=== PATIENT | female | born 1950 | race Caucasian/White ===

== ENCOUNTER 2020-12-30 08:00 | Outpatient (CLI) | payer MEDICARE, OTHER | END 2020-12-30 23:59 | disposition home or self-care (01) | LOC: LAB.S 08:00 | PROVIDERS: ATTEND Physician Assistant Medical | DX: R30.0 Dysuria (principal) | CPT/HCPCS: 87086; 87181 ==

== ENCOUNTER 2021-01-16 07:00 | Outpatient (CLI) | payer MEDICARE, OTHER ==
[2021-01-16 19:19] LABS: BILIRUBIN,URINE NEGATIVE (NEGATIVE); GLUCOSE, URINE (UA) NEGATIVE (NEGATIVE); KETONES,URINE (UA) NEGATIVE (NEGATIVE); LEUKOCYTE ESTERASE, URINE MODERATE (NEGATIVE); NITRITE,URINE NEGATIVE (NEGATIVE); OCCULT BLOOD,URINE NEGATIVE (NEGATIVE); PH,URINE 5.5 PH (5.0-7.5); PROTEIN,URINE NEGATIVE (NEGATIVE); UROBILINOGEN,URINE 0.2 (NORMAL) E.U./dL (NORMAL)
[2021-01-16 19:33] LABS: BACTERIA,URINE Few /HPF (None Seen); CLARITY,URINE HAZY (CLEAR); RBC,URINE 0-5 /HPF (0-5); SQUAMOUS EPITHELIAL CELL,UR NONE SEEN (<= Few)
== END 2021-01-16 23:59 | disposition home or self-care (01) ==
LOC: LAB.R 07:00
PROVIDERS: ATTEND Emergency Medicine
DX: N39.0 Urinary tract infection, site not specified (principal)
CPT/HCPCS: 81001; 87086; 87181

== ENCOUNTER 2021-01-27 08:00 | Outpatient (CLI) | payer MEDICARE, OTHER ==
[2021-01-27 15:40] LABS: BILIRUBIN,URINE NEGATIVE (NEGATIVE); GLUCOSE, URINE (UA) NEGATIVE (NEGATIVE); KETONES,URINE (UA) NEGATIVE (NEGATIVE); LEUKOCYTE ESTERASE, URINE SMALL (NEGATIVE); NITRITE,URINE NEGATIVE (NEGATIVE); OCCULT BLOOD,URINE TRACE-INTA (NEGATIVE); PROTEIN,URINE NEGATIVE (NEGATIVE); UROBILINOGEN,URINE 0.2 (NORMAL) E.U./dL (NORMAL)
[2021-01-27 15:42] LABS: CLARITY,URINE CLEAR (CLEAR)
[2021-01-27 15:43] LABS: BACTERIA,URINE Rare /HPF (None Seen); RBC,URINE 0-5 /HPF (0-5); SQUAMOUS EPITHELIAL CELL,UR FEW Squamous (<= Few)
--- OUTSIDE RECORDS SUMMARY | 2021-02-02 02:08 | EXTERNAL MEDICAL SUMMARY RPT | Continuity of Care Document ---
:1950 Demographics Phone Unavailable Preferred Language Unknown Marital Status Unknown Mandaeism Affiliation Unknown Race Unknown Ethnic Group Unknown Author Organization [facility] Address [address] [id number] Phone Care Team Providers Name Role Phone Registrar Unavailable Unavailable Registrar Unavailable Unavailable PA-C Unavailable Unavailable PA-C Unavailable Unavailable MD Unavailable Unavailable Problems date description facility 20201230 Unspecified hypothyroidism [facility] [place] 20201230 Essential (primary) hypertension [facility] [place] 20201230 Never smoker [facility] [place] 20201230 Acute urinary tract infection [facility] [place] 20201230 Dysthymic disorder [facility] [place] 20201230 Ejection murmur [facility] [place] 20201230 Other specified anxiety disorders [facility] [place] 20201230 Benign essential hypertension [facility] [place] 20201230 Cardiac murmur, unspecified [facility] [place] 20201230 Dysuria [facility] [place] 20201230 Exercise [facility] [place] 20201230 Hypothyroidism [facility] [place] 20201230 Mixed anxiety and depressive disorder [facility] [place] 20201230 Alcohol use [facility] [place] 20201230 Hypothyroidism, unspecified [facility] [place] 20201230 Tobacco smoking status NHIS [facility] [place] 20201230 Undiagnosed cardiac murmurs [facility] in [facility] [place] 20201230 Urinary tract infection, site not [facility] specified [facility] [place] 20201230 Urine C&S [facility] [place] 20210116 Alcohol use [facility] [place] [id number] Never smoker [facility] [place] [id number] Tobacco smoking status NHIS Walk-In [facility] [place] [id number] Exercise [facility] [place] [id number] Total score? [facility] [place] [id number] Urinalysis with Microscopic Exam, Walk -In [facility] in Indicated [facility] [place] Medications date description facility [id number] NITROFURANTOIN MONOHYD MACRO Walk-In [facility] [place] [id number] NITROFURANTOIN MONOHYD MACRO Walk-In [facility] [place] [id number] NITROFURANTOIN MONOHYD MACRO Walk-In [facility] [place] [id number] NITROFURANTOIN MONOHYD MACRO Walk-In [facility] [place] [id number] NITROFURANTOIN MONOHYD MACRO Walk-In [facility] [place] [id number] NITROFURANTOIN MONOHYD MACRO Walk-In [facility] [place] [id number] NITROFURANTOIN MONOHYD MACRO Walk-In [facility] [place] [id number] NITROFURANTOIN MONOHYD MACRO Walk-In [facility] [place] [id number] NITROFURANTOIN MONOHYD MACRO Walk-In [facility] [place] [id number] NITROFURANTOIN MONOHYD MACRO Walk-In [facility] [place] [id number] CEPHALEXIN Walk-In [facility] [place] [id number] CEPHALEXIN [facility] [place] [id number] CEPHALEXIN [facility] [place] [id number] CEPHALEXIN [facility] [place] Procedures date description facility [id number] POC URINALYSIS DIP Walk[facility] [place] date description facility [id number] POC URINALYSIS DIP [facility] [place] date description facility 20201230 POC URINALYSIS DIP [facility] [place] date description facility [id number] POC URINALYSIS DIP [facility] [place] date description facility [id number] POC URINALYSIS DIP Walk-In Clinic [facility] [place] date description facility [id number] POC URINALYSIS DIP Walk-In Clinic [facility] [place] date description facility [id number] POC URINALYSIS DIP Walk-In Clinic [facility] [place] date description facility [id number] POC URINALYSIS DIP Walk-In Clinic [facility] [place] Results test status date ordered by attending specimen sonali e DIPSTICK_URINE_STRIP_L unknown [id number] unknown unknown unknown OT_NUMBER protein_urine_semiquan unknown 70064925 unknown unknown unknown titative_dipstick_ glucose_urine_semiquan unknown 16715216 unknown unknown unknown titative Erythrocytes_area_in_U unknown 78938267 unknown unknown unknown rine_sediment_by_Micros copy_high_power_field RBC_urine_dipstick unknown 58805589 unknown unknown unkn own Albumin_Presence_in_Ur unknown 70974218 unknown unknown unknown ine urine_color unknown 31007314 unknown unknown unknown bilirubin_urine unknown 92140579 unknown unknown unknown ketones_urine_by_test_ unknown 43660859 unknown unknown unknown strip nitrite_urine_semiquan unknown 37094930 unknown unknown unknown titative pH_urine_semiquantitat unknown 60651908 unknown unknown unknown raheem specific_gravity_urine unknown 81384333 unknown unknown unknown urobilinogen_urine_sem unknown 92830054 unknown unknown unknown iquantitative_dipstick_ leukocyte_esterase_uri unknown 09356858 unknown unknown unknown ne_by_dipstick appearance_urine unknown 13644107 unknown unknown unknow n urinalysis_routine unknown 79487868 unknown unknown unkn own culture_status unknown 11163066 unknown unknown unknown Appearance_of_Urine unknown 61910903 unknown unknown unk nown Bilirubin.total_Presen unknown 48801464 unknown unknown unknown ce_in_Urine_by_Test_str ip Color_of_Urine unknown 91808584 unknown unknown unknown Glucose_Mass_volume_in unknown 93374621 unknown unknown unknown _Urine_by_Test_strip Ketones_Mass_volume_in unknown 62455470 unknown unknown unknown _Urine_by_Test_strip Leukocyte_esterase_Pre unknown 19788076 unknown unknown unknown sence_in_Urine_by_Test_ strip Nitrite_Presence_in_Ur unknown 46128604 unknown unknown unknown ine_by_Test_strip pH_of_Urine_by_Test_st unknown 07541005 unknown unknown unknown rip Specific_gravity_of_Ur unknown 50588946 unknown unknown unknown ine_by_Test_strip Urobilinogen_Presence_ unknown 00432483 unknown unknown unknown in_Urine_by_Test_strip DIPSTICK_URINE_STRIP_L unknown 09656599 unknown unknown unknown OT_NUMBER protein_urine_semiquan unknown 24231763 unknown unknown unknown titative_dipstick_ glucose_urine_semiquan unknown 58789927 unknown unknown unknown titative Erythrocytes_area_in_U unknown 94544480 unknown unknown unknown rine_sediment_by_Micros copy_high_power_field RBC_urine_dipstick unknown 24287961 unknown unknown unkn own Albumin_Presence_in_Ur unknown 39442835 unknown unknown unknown ine urine_color unknown 53097763 unknown unknown unknown bilirubin_urine unknown 02641349 unknown unknown unknown ketones_urine_by_test_ unknown 58615351 unknown unknown unknown strip nitrite_urine_semiquan unknown 55323189 unknown unknown unknown titative pH_urine_semiquantitat unknown 21905350 unknown unknown unknown raheem specific_gravity_urine unknown 79489508 unknown unknown unknown urobilinogen_urine_sem unknown 05955241 unknown unknown unknown iquantitative_dipstick_ leukocyte_esterase_uri unknown 06554533 unknown unknown unknown ne_by_dipstick appearance_urine unknown 33075633 unknown unknown unknow n urinalysis_routine unknown 24584636 unknown unknown unkn own culture_status unknown 93108890 unknown unknown unknown Appearance_of_Urine unknown 21778885 unknown unknown unk nown Bilirubin.total_Presen unknown 85461764 unknown unknown unknown ce_in_Urine_by_Test_str ip Color_of_Urine unknown 68056446 unknown unknown unknown Glucose_Mass_volume_in unknown 82410337 unknown unknown unknown _Urine_by_Test_strip Ketones_Mass_volume_in unknown 22587774 unknown unknown unknown _Urine_by_Test_strip Leukocyte_esterase_Pre unknown 35850846 unknown unknown unknown sence_in_Urine_by_Test_ strip Nitrite_Presence_in_Ur unknown 06301336 unknown unknown unknown ine_by_Test_strip pH_of_Urine_by_Test_st unknown 46404853 unknown unknown unknown rip Specific_gravity_of_Ur unknown 88494143 unknown unknown unknown ine_by_Test_strip Urobilinogen_Presence_ unknown 01004649 unknown unknown unknown in_Urine_by_Test_strip DIPSTICK_URINE_STRIP_L unknown 05873406 unknown unknown unknown OT_NUMBER protein_urine_semiquan unknown 44246600 unknown unknown unknown titative_dipstick_ glucose_urine_semiquan unknown 61788117 unknown unknown unknown titative Erythrocytes_area_in_U unknown 27138232 unknown unknown unknown rine_sediment_by_Micros copy_high_power_field RBC_urine_dipstick unknown 87944762 unknown unknown unkn own Albumin_Presence_in_Ur unknown 41508923 unknown unknown unknown ine urine_color unknown 56095421 unknown unknown unknown bilirubin_urine unknown 99079574 unknown unknown unknown ketones_urine_by_test_ unknown 63713788 unknown unknown unknown strip nitrite_urine_semiquan unknown 20779623 unknown unknown unknown titative pH_urine_semiquantitat unknown 02982505 unknown unknown unknown raheem specific_gravity_urine unknown 13742873 unknown unknown unknown urobilinogen_urine_sem unknown 47358964 unknown unknown unknown iquantitative_dipstick_ leukocyte_esterase_uri unknown 13037361 unknown unknown unknown ne_by_dipstick appearance_urine unknown 95159623 unknown unknown unknow n urinalysis_routine unknown 60510948 unknown unknown unkn own culture_status unknown 93547616 unknown unknown unknown Appearance_of_Urine unknown 55042030 unknown unknown unk nown Bilirubin.total_Presen unknown 00888233 unknown unknown unknown ce_in_Urine_by_Test_str ip Color_of_Urine unknown 46045678 unknown unknown unknown Glucose_Mass_volume_in unknown 30872317 unknown unknown unknown _Urine_by_Test_strip Ketones_Mass_volume_in unknown 91496943 unknown unknown unknown _Urine_by_Test_strip Leukocyte_esterase_Pre unknown 49543897 unknown unknown unknown sence_in_Urine_by_Test_ strip Nitrite_Presence_in_Ur unknown 70425086 unknown unknown unknown ine_by_Test_strip pH_of_Urine_by_Test_st unknown 27672564 unknown unknown unknown rip Specific_gravity_of_Ur unknown 56474483 unknown unknown unknown ine_by_Test_strip Urobilinogen_Presence_ unknown 03727252 unknown unknown unknown in_Urine_by_Test_strip BILIRUBIN_URINE unknown 54112943 unknown unknown unknown CLARITY_URINE unknown 65486438 unknown unknown unknown COLOR_URINE unknown 53756607 unknown unknown unknown GLUCOSE_URINE_UA_ unknown 76277855 unknown unknown unkno wn KETONES_URINE_UA_ unknown 58275657 unknown unknown unkno wn LEUKOCYTE_ESTERASE_URI unknown 03748943 unknown unknown unknown NE NITRITE_URINE unknown 52151077 unknown unknown unknown PH_URINE unknown 98275604 unknown unknown unknown T unknown 71379148 unknown unknown unknown T unknown 82586794 unknown unknown unknown T unknown 78431220 unknown unknown unknown T unknown 32583182 unknown unknown unknown T unknown 16654835 unknown unknown unknown T unknown 64196651 unknown unknown unknown T unknown 96950147 unknown unknown unknown T unknown 84205849 unknown unknown unknown T unknown 21482427 unknown unknown unknown T unknown 62642206 unknown unknown unknown T unknown 52289428 unknown unknown unknown SPECIFIC_GRAVITY_URINE unknown 24386961 unknown unknown unknown UROBILINOGEN_URINE unknown 15184022 unknown unknown unkn own WBC_URINE unknown 64111794 unknown unknown unknown DIPSTICK_URINE_STRIP_L unknown 81670924 unknown unknown unknown OT_NUMBER WBC_urine_on_microscop unknown 69832102 unknown unknown unknown y Urine_HCG_QC_Result_CL unknown 66370382 unknown unknown unknown IA_Waived_ protein_urine_semiquan unknown 46253866 unknown unknown unknown titative_dipstick_ glucose_urine_semiquan unknown 82256773 unknown unknown unknown titative Erythrocytes_area_in_U unknown 13877235 unknown unknown unknown rine_sediment_by_Micros copy_high_power_field RBC_urine_dipstick unknown 73275995 unknown unknown unkn own Albumin_Presence_in_Ur unknown 45209506 unknown unknown unknown ine Glucose_Mass_volume_in unknown 92668588 unknown unknown unknown _Urine urine_color unknown 45368145 unknown unknown unknown bilirubin_urine unknown 26442203 unknown unknown unknown ketones_urine_by_test_ unknown 43845797 unknown unknown unknown strip nitrite_urine_semiquan unknown 09462841 unknown unknown unknown titative pH_urine_semiquantitat unknown 01104076 unknown unknown unknown raheem specific_gravity_urine unknown 85284061 unknown unknown unknown urobilinogen_urine_sem unknown 94970853 unknown unknown unknown iquantitative_dipstick_ leukocyte_esterase_uri unknown 71566343 unknown unknown unknown ne_by_dipstick appearance_urine unknown 07733952 unknown unknown unknow n glucose_urine unknown 62727624 unknown unknown unknown urinalysis_routine unknown 01948102 unknown unknown unkn own culture_status unknown 59524719 unknown unknown unknown pH_study_of_acidity unknown 30406802 unknown unknown unk nown clarity_urine_point unknown 37362603 unknown unknown unk nown Appearance_of_Urine unknown 98006037 unknown unknown unk nown Bilirubin.total_Presen unknown 77790376 unknown unknown unknown ce_in_Urine_by_Test_str ip Color_of_Urine unknown 74431126 unknown unknown unknown Glucose_Mass_volume_in unknown 03956228 unknown unknown unknown _Urine_by_Test_strip Ketones_Mass_volume_in unknown 47016126 unknown unknown unknown _Urine_by_Test_strip Leukocyte_esterase_Pre unknown 00946588 unknown unknown unknown sence_in_Urine_by_Test_ strip Nitrite_Presence_in_Ur unknown 48641302 unknown unknown unknown ine_by_Test_strip pH_of_Urine_by_Test_st unknown 27589301 unknown unknown unknown rip Specific_gravity_of_Ur unknown 06078639 unknown unknown unknown ine_by_Test_strip Urobilinogen_Presence_ unknown 60178487 unknown unknown unknown in_Urine_by_Test_strip WBC_urine_on_microscop unknown 03909974 unknown unknown unknown y BILIRUBIN_URINE unknown 27849629 unknown unknown unknown CLARITY_URINE unknown 45559678 unknown unknown unknown COLOR_URINE unknown 53673987 unknown unknown unknown GLUCOSE_URINE_UA_ unknown 22096719 unknown unknown unkno wn KETONES_URINE_UA_ unknown 92024569 unknown unknown unkno wn LEUKOCYTE_ESTERASE_URI unknown 66244733 unknown unknown unknown NE NITRITE_URINE unknown 19943089 unknown unknown unknown PH_URINE unknown 76102480 unknown unknown unknown T unknown 02335780 unknown unknown unknown T unknown 50605773 unknown unknown unknown T unknown 33525539 unknown unknown unknown T unknown 77298554 unknown unknown unknown T unknown 12455447 unknown unknown unknown T unknown 79108666 unknown unknown unknown T unknown 38052262 unknown unknown unknown T unknown 60439512 unknown unknown unknown T unknown 98759421 unknown unknown unknown T unknown 66134135 unknown unknown unknown T unknown 72441662 unknown unknown unknown SPECIFIC_GRAVITY_URINE unknown 04482594 unknown unknown unknown UROBILINOGEN_URINE unknown 36694867 unknown unknown unkn own WBC_URINE unknown 13232439 unknown unknown unknown DIPSTICK_URINE_STRIP_L unknown 94070735 unknown unknown unknown OT_NUMBER WBC_urine_on_microscop unknown 32315056 unknown unknown unknown y Urine_HCG_QC_Result_CL unknown 92552587 unknown unknown unknown IA_Waived_ protein_urine_semiquan unknown 91269694 unknown unknown unknown titative_dipstick_ glucose_urine_semiquan unknown 25313921 unknown unknown unknown titative Erythrocytes_area_in_U unknown 94143329 unknown unknown unknown rine_sediment_by_Micros copy_high_power_field RBC_urine_dipstick unknown 12198542 unknown unknown unkn own Albumin_Presence_in_Ur unknown 03055275 unknown unknown unknown ine Glucose_Mass_volume_in unknown 15998366 unknown unknown unknown _Urine urine_color unknown 46893595 unknown unknown unknown urine_color unknown 43189286 unknown unknown unknown bilirubin_urine unknown 02132236 unknown unknown unknown bilirubin_urine unknown 23102822 unknown unknown unknown ketones_urine_by_test_ unknown 25408083 unknown unknown unknown strip ketones_urine_by_test_ unknown 23764775 unknown unknown unknown strip nitrite_urine_semiquan unknown 14506735 unknown unknown unknown titative nitrite_urine_semiquan unknown 68823771 unknown unknown unknown titative pH_urine_semiquantitat unknown 78298753 unknown unknown unknown raheem specific_gravity_urine unknown 16678271 unknown unknown unknown specific_gravity_urine unknown 19002767 unknown unknown unknown urobilinogen_urine_sem unknown 56374979 unknown unknown unknown iquantitative_dipstick_ urobilinogen_urine_sem unknown 48196877 unknown unknown unknown iquantitative_dipstick_ leukocyte_esterase_uri unknown 37703011 unknown unknown unknown ne_by_dipstick leukocyte_esterase_uri unknown 13510554 unknown unknown unknown ne_by_dipstick appearance_urine unknown 24670348 unknown unknown unknow n glucose_urine unknown 27090805 unknown unknown unknown urinalysis_routine unknown 22618338 unknown unknown unkn own culture_status unknown 44754228 unknown unknown unknown pH_study_of_acidity unknown 63398960 unknown unknown unk nown clarity_urine_point unknown 20359263 unknown unknown unk nown Appearance_of_Urine unknown 36961632 unknown unknown unk nown Bilirubin.total_Presen unknown 78707376 unknown unknown unknown ce_in_Urine_by_Test_str ip Bilirubin.total_Presen unknown 92424733 unknown unknown unknown ce_in_Urine_by_Test_str ip Color_of_Urine unknown 87505063 unknown unknown unknown Color_of_Urine unknown 50330172 unknown unknown unknown Glucose_Mass_volume_in unknown 93464279 unknown unknown unknown _Urine_by_Test_strip Ketones_Mass_volume_in unknown 06189505 unknown unknown unknown _Urine_by_Test_strip Ketones_Mass_volume_in unknown 69314840 unknown unknown unknown _Urine_by_Test_strip Leukocyte_esterase_Pre unknown 12942798 unknown unknown unknown sence_in_Urine_by_Test_ strip Leukocyte_esterase_Pre unknown 35757938 unknown unknown unknown sence_in_Urine_by_Test_ strip Nitrite_Presence_in_Ur unknown 79535553 unknown unknown unknown ine_by_Test_strip Nitrite_Presence_in_Ur unknown 97837748 unknown unknown unknown ine_by_Test_strip pH_of_Urine_by_Test_st unknown 15149321 unknown unknown unknown rip Specific_gravity_of_Ur unknown 61367733 unknown unknown unknown ine_by_Test_strip Specific_gravity_of_Ur unknown 80616236 unknown unknown unknown ine_by_Test_strip Urobilinogen_Presence_ unknown 57076289 unknown unknown unknown in_Urine_by_Test_strip Urobilinogen_Presence_ unknown 57212255 unknown unknown unknown in_Urine_by_Test_strip WBC_urine_on_microscop unknown 12408146 unknown unknown unknown y facility observation status value reference units lab code abn ormal line range notes Walk-In DIPSTICK_URI unknown 6019 unknown _101400 unkno wn unknown Clinic NE_STRIP_LOT_ Primary NUMBER Care & [facility] [place] Walk-In protein_urin unknown trace unknown _118 unknow n unknown Clinic e_semiquantit Primary ative_dipstic Care & k_ [facility] [place] Walk-[facility] glucose_urin unknown negative unknown _123 unkn own unknown Clinic e_semiquantit Primary ative Care & [facility] [place] Walk-In Erythrocytes unknown hemolyzed unknown _13945-1 u nknown unknown Clinic _area_in_Urin trace Primary e_sediment_by Care & _Microscopy_h Ancillary igh_power_fie Services ld [facility] RBC_urine_di unknown hemolyzed unknown _1700005 u nknown unknown Clinic pstick trace [facility] [place] [facility] Albumin_Pres unknown trace unknown _1753-3 unkno wn unknown Clinic ence_in_Urine [facility] [place] [facility] urine_color unknown yellow unknown _2751 unknown unknown Clinic [facility] [place] [facility] bilirubin_ur unknown negative unknown _319 unkn own unknown Clinic ine [facility] [place] [facility] ketones_urin unknown negative unknown _322 unkn own unknown Clinic e_by_test_str Primary ip [facility] [place] [facility] nitrite_urin unknown positive unknown _323 unkn own unknown Clinic e_semiquantit Primary ative Care & [facility] [place] Walk[facility] pH_urine_sem unknown 6.5 unknown _324 unknow n unknown Clinic iquantitative [facility] [place] [facility] specific_gra unknown 1.015 unknown _325 unknow n unknown Clinic vity_urine [facility] [place] [facility] urobilinogen unknown negative unknown _326 unkn own unknown Clinic _urine_semiqu Primary antitative_di Care & pstick_ Ancillary Services [facility] [facility]In leukocyte_es unknown 3+ unknown _327 unknow n unknown Clinic terase_urine_ Primary by_dipstick Care & Anc[facility] [place] Walk-In appearance_u unknown hazy unknown _328 unknow n unknown Clinic rine [facility] [place] [facility] urinalysis_r unknown Clean unknown _47 unknow n unknown Clinic outine Catch [facility] [place] [facility] culture_stat unknown Yes unknown _51015 unknow n unknown Clinic us [facility] [place] [facility] Appearance_o unknown hazy unknown _5767-9 unkno wn unknown Clinic f_Urine [facility] [place] [facility] Bilirubin.to unknown negative unknown _5770-3 unk nown unknown Clinic tal_Presence_ Primary in_Urine_by_T Care & est_strip Ancillary Services [place] Walk[facility] Color_of_Uri unknown yellow unknown _5778-6 unkno wn unknown Clinic ne [facility] [place] Walk-In Glucose_Mass unknown negative unknown _5792-7 unk nown unknown Clinic _volume_in_Ur Primary ine_by_Test_s Care & trip [facility] [facility] Ketones_Mass unknown negative unknown _5797-6 unk nown unknown Clinic _volume_in_Ur Primary ine_by_Test_s Care & trip [facility] [place] [facility] Leukocyte_es unknown 3+ unknown _5799-2 unkno wn unknown Clinic terase_Presen Primary ce_in_Urine_b Care & y_Test_strip Ancillary [facility] Nitrite_Pres unknown positive unknown _5802-4 unk nown unknown Clinic ence_in_Urine Primary _by_Test_stri Care & p [facility] [place] [facility] pH_of_Urine_ unknown 6.5 unknown _5803-2 unkno wn unknown Clinic by_Test_strip [facility] [place] [facility] Specific_gra unknown 1.015 unknown _5811-5 unkno wn unknown Clinic vity_of_Urine Primary _by_Test_stri Care & p [facility] [place] [facility] Urobilinogen unknown negative unknown _5818-0 unk nown unknown Clinic _Presence_in_ Primary Urine_by_Test Care & _strip [facility] [place] [facility] DIPSTICK_URI unknown 6019 unknown _101400 unkno wn unknown Clinic NE_STRIP_LOT_ Primary NUMBER Care & [facility] [place] [facility] protein_urin unknown trace unknown _118 unknow n unknown Clinic e_semiquantit Primary ative_dipstic Care & k_ Ancillary [facility] [place] Walk-In glucose_urin unknown negative unknown _123 unkn own unknown Clinic e_semiquantit Primary ative Care & [facility] [place] [facility] Erythrocytes unknown hemolyzed unknown _13945-1 u nknown unknown Clinic _area_in_Urin trace Primary e_sediment_by Care & _Microscopy_h Ancillary igh_power_fie Services [facility] RBC_urine_di unknown hemolyzed unknown _[id number] u nknown unknown Clinic pstick trace [facility] Albumin_Pres unknown trace unknown _1753-3 unkno wn unknown Clinic ence_in_Urine [facility] urine_color unknown yellow unknown _2751 unknown unknown Clinic [facility] bilirubin_ur unknown negative unknown _319 unkn own unknown Clinic ine [facility] ketones_urin unknown negative unknown _322 unkn own unknown Clinic e_by_test_str Primary ip Care & [facility] nitrite_urin unknown positive unknown _323 unkn own unknown Clinic e_semiquantit Primary ative Care & [facility] pH_urine_sem unknown 6.5 unknown _324 unknow n unknown Clinic iquantitative [facility] specific_gra unknown 1.015 unknown _325 unknow n unknown Clinic vity_urine [facility] urobilinogen unknown negative unknown _326 unkn own unknown Clinic _urine_semiqu Primary antitative_di Care & pstick_ [facility] leukocyte_es unknown 3+ unknown _327 unknow n unknown Clinic terase_urine_ Primary by_dipstick [facility] & [facility] appearance_u unknown hazy unknown _328 unknow n unknown Clinic rine [facility] urinalysis_r unknown Clean unknown _47 unknow n unknown Clinic outine Catch [facility] culture_stat unknown Yes unknown _51015 unknow n unknown Clinic us [facility] Appearance_o unknown hazy unknown _5767-9 unkno wn unknown Clinic f_Urine [facility] Bilirubin.to unknown negative unknown _5770-3 unk nown unknown Clinic tal_Presence_ Primary in_Urine_by_T Care & est_strip [facility] Color_of_Uri unknown yellow unknown _5778-6 unkno wn unknown Clinic ne [facility] Glucose_Mass unknown negative unknown _5792-7 unk nown unknown Clinic _volume_in_Ur Primary ine_by_Test_s Care & trip [facility] Ketones_Mass unknown negative unknown _5797-6 unk nown unknown Clinic _volume_in_Ur Primary ine_by_Test_s Care & trip [facility] Leukocyte_es unknown 3+ unknown _5799-2 unkno wn unknown Clinic terase_Presen Primary ce_in_Urine_b Care & y_Test_strip [facility] Nitrite_Pres unknown positive unknown _5802-4 unk nown unknown Clinic ence_in_Urine Primary _by_Test_stri Care & p [facility] pH_of_Urine_ unknown 6.5 unknown _5803-2 unkno wn unknown Clinic by_Test_strip [facility] Specific_gra unknown 1.015 unknown _5811-5 unkno wn unknown Clinic vity_of_Urine Primary _by_Test_stri Care & p [facility] Urobilinogen unknown negative unknown _5818-0 unk nown unknown Clinic _Presence_in_ Primary Urine_by_Test Care & _strip [facility] DIPSTICK_URI unknown 6019 unknown _101400 unkno wn unknown Clinic NE_STRIP_LOT_ Primary NUMBER Care & [facility] protein_urin unknown trace unknown _118 unknow n unknown Clinic e_semiquantit Primary ative_dipstic Care & k_ [facility] glucose_urin unknown negative unknown _123 unkn own unknown Clinic e_semiquantit Primary ative Care & [facility] Erythrocytes unknown hemolyzed unknown _13945-1 u nknown unknown Clinic _area_in_Urin trace Primary e_sediment_by Care & _Microscopy_h Ancillary igh_power_fie Services [facility] RBC_urine_di unknown hemolyzed unknown _[id number] u nknown unknown Clinic pstick trace [facility] Albumin_Pres unknown trace unknown _1753-3 unkno wn unknown Clinic ence_in_Urine [facility] urine_color unknown yellow unknown _2751 unknown unknown Clinic [facility] bilirubin_ur unknown negative unknown _319 unkn own unknown Clinic ine [facility] ketones_urin unknown negative unknown _322 unkn own unknown Clinic e_by_test_str Primary ip Care & [facility] nitrite_urin unknown positive unknown _323 unkn own unknown Clinic e_semiquantit Primary ative Care & [facility] pH_urine_sem unknown 6.5 unknown _324 unknow n unknown Clinic iquantitative [facility] specific_gra unknown 1.015 unknown _325 unknow n unknown Clinic vity_urine [facility] urobilinogen unknown negative unknown _326 unkn own unknown Clinic _urine_semiqu Primary antitative_di Care & pstick_ [facility] leukocyte_es unknown 3+ unknown _327 unknow n unknown Clinic terase_urine_ Primary by_dipstick [facility] appearance_u unknown hazy unknown _328 unknow n unknown Clinic rine [facility] urinalysis_r unknown Clean unknown _47 unknow n unknown Clinic outine Catch [facility] culture_stat unknown Yes unknown _51015 unknow n unknown Clinic us [facility] Appearance_o unknown hazy unknown _5767-9 unkno wn unknown Clinic f_Urine [facility] Bilirubin.to unknown negative unknown _5770-3 unk nown unknown Clinic tal_Presence_ Primary in_Urine_by_T Care & est_strip [facility] Color_of_Uri unknown yellow unknown _5778-6 unkno wn unknown Clinic ne [facility] Glucose_Mass unknown negative unknown _5792-7 unk nown unknown Clinic _volume_in_Ur Primary ine_by_Test_s Care & trip [facility] Ketones_Mass unknown negative unknown _5797-6 unk nown unknown Clinic _volume_in_Ur Primary ine_by_Test_s Care & trip [facility] Leukocyte_es unknown 3+ unknown _5799-2 unkno wn unknown Clinic terase_Presen Primary ce_in_Urine_b Care & y_Test_strip [facility] Nitrite_Pres unknown positive unknown _5802-4 unk nown unknown Clinic ence_in_Urine Primary _by_Test_stri Care & p [facility] pH_of_Urine_ unknown 6.5 unknown _5803-2 unkno wn unknown Clinic by_Test_strip [facility] Specific_gra unknown 1.015 unknown _5811-5 unkno wn unknown Clinic vity_of_Urine Primary _by_Test_stri Care & p [facility] Urobilinogen unknown negative unknown _5818-0 unk nown unknown Clinic _Presence_in_ Primary Urine_by_Test Care & _strip [facility] BILIRUBIN_UR unknown NEGATIVE unknown UBIL unkn own unknown Clinic INE [facility] CLARITY_URIN unknown HAZY unknown UCLAR unknow n unknown Clinic E [facility] COLOR_URINE unknown YELLOW unknown UCOL unknown unknown Clinic [facility] GLUCOSE_URIN unknown NEGATIVE unknown UGLUC unkn own unknown Clinic E_UA_ mg/dL [facility] KETONES_URIN unknown NEGATIVE unknown UKET unkn own unknown Clinic E_UA_ [facility] LEUKOCYTE_ES unknown MODERATE unknown ULEUK unkn own unknown Clinic TERASE_URINE [facility] NITRITE_URIN unknown NEGATIVE unknown UNITRITE un known unknown Clinic E [facility] PH_URINE unknown 5.5 unknown UPH unknown u nknown Clinic [facility] T unknown NEGATIVE unknown UR_BILI unknown unknown Clinic [facility] T unknown HAZY unknown UR_CLARI unknown u nknow Clinic TY [facility] T unknown YELLOW unknown UR_COLOR unknown u nknow Clinic [facility] T unknown NEGATIVE unknown UR_GLU unknown u nknow Clinic mg/dL [facility] T unknown NEGATIVE unknown UR_KETO_ unknown unknown Clinic UA_ [facility] T unknown MODERATE unknown UR_LEU_E unknown unknown Clinic STERASE [facility] T unknown NEGATIVE unknown UR_NIT unknown u nknown Clinic [facility] T unknown 5.5 unknown UR_PH unknown unk nown Clinic [facility] T unknown <=1.005 unknown UR_SG unknown un known Clinic [facility] T unknown 0.2 unknown UR_URO unknown unk nown Clinic (NORMAL) [facility] T unknown 6-10 /HPF unknown UR_WBC unknown unknown Clinic [facility] SPECIFIC_GRA unknown <=1.005 unknown USG unkno wn unknown Clinic VITY_URINE [facility] UROBILINOGEN unknown 0.2 unknown UUROBIL unkno wn unknown Clinic _URINE (NORMAL) [facility] WBC_URINE unknown 6-10 /HPF unknown UWBC unknow n unknown Clinic [facility] DIPSTICK_URI unknown 5067 unknown _101400 unkno wn unknown Clinic NE_STRIP_LOT_ Primary NUMBER Care & [facility] WBC_urine_on unknown 6-10 /HPF unknown _1016 unk nown unknown Clinic _microscopy [facility] Urine_HCG_QC unknown Yes unknown _[id number] unkno wn unknown Clinic _Result_CLIA_ Primary Waived_ Care & [facility] protein_urin unknown negative unknown _118 unkn own unknown Clinic e_semiquantit Primary ative_dipstic Care & k_ [facility] glucose_urin unknown negative unknown _123 unkn own unknown Clinic e_semiquantit Primary ative Care & [facility] Erythrocytes unknown negative unknown _13945-1 un known unknown Clinic _area_in_Urin Primary e_sediment_by Care & _Microscopy_h Ancillary igh_power_fie Services [facility] RBC_urine_di unknown negative unknown _[id number] un known unknown Clinic pstick [facility] Albumin_Pres unknown negative unknown _1753-3 unk nown unknown Clinic ence_in_Urine [facility] Glucose_Mass unknown NEGATIVE unknown _2350-7 unk nown unknown Clinic _volume_in_Ur mg/dL Primary ine Care & [facility] urine_color unknown YELLOW unknown _2751 unknown unknown Clinic [facility] bilirubin_ur unknown NEGATIVE unknown _319 unkn own unknown Clinic ine [facility] ketones_urin unknown NEGATIVE unknown _322 unkn own unknown Clinic e_by_test_str Primary ip [facility] nitrite_urin unknown NEGATIVE unknown _323 unkn own unknown Clinic e_semiquantit Primary ative Care & [facility] pH_urine_sem unknown 6.5 unknown _324 unknow n unknown Clinic iquantitative [facility] specific_gra unknown <=1.005 unknown _325 unkno wn unknown Clinic vity_urine [facility] urobilinogen unknown 0.2 unknown _326 unknow n unknown Clinic _urine_semiqu (NORMAL) Primary antitative_di Care & pstick_ [facility] leukocyte_es unknown MODERATE unknown _327 unkn own unknown Clinic terase_urine_ Primary by_dipstick [facility] appearance_u unknown clear unknown _328 unknow n unknown Clinic rine [facility] glucose_urin unknown NEGATIVE unknown _3369 unkn own unknown Clinic e mg/dL [facility] urinalysis_r unknown Clean unknown _47 unknow n unknown Clinic outine Catch [facility] culture_stat unknown Yes unknown _51015 unknow n unknown Clinic us [facility] pH_study_of_ unknown 5.5 unknown _51641 unknow n unknown Clinic acidity [facility] clarity_urin unknown HAZY unknown _5589 unknow n unknown Clinic e_point [facility] Appearance_o unknown clear unknown _5767-9 unkno wn unknown Clinic f_Urine [facility] Bilirubin.to unknown NEGATIVE unknown _5770-3 unk nown unknown Clinic tal_Presence_ Primary in_Urine_by_T Care & est_strip [facility] Color_of_Uri unknown YELLOW unknown _5778-6 unkno wn unknown Clinic ne [facility] Glucose_Mass unknown negative unknown _5792-7 unk nown unknown Clinic _volume_in_Ur Primary ine_by_Test_s Care & trip [facility] Ketones_Mass unknown NEGATIVE unknown _5797-6 unk nown unknown Clinic _volume_in_Ur Primary ine_by_Test_s Care & trip [facility] Leukocyte_es unknown MODERATE unknown _5799-2 unk nown unknown Clinic terase_Presen Primary ce_in_Urine_b Care & y_Test_strip [facility] Nitrite_Pres unknown NEGATIVE unknown _5802-4 unk nown unknown Clinic ence_in_Urine Primary _by_Test_stri Care & p [facility] pH_of_Urine_ unknown 6.5 unknown _5803-2 unkno wn unknown Clinic by_Test_strip [facility] Specific_gra unknown <=1.005 unknown _5811-5 unkn own unknown Clinic vity_of_Urine Primary _by_Test_stri Care & p [facility] Urobilinogen unknown 0.2 unknown _5818-0 unkno wn unknown Clinic _Presence_in_ (NORMAL) Primary Urine_by_Test Care & _strip [facility] WBC_urine_on unknown 6-10 /HPF unknown _5821-4 un known unknown Clinic _microscopy [facility] BILIRUBIN_UR unknown NEGATIVE unknown UBIL unkn own unknown Clinic INE [facility] CLARITY_URIN unknown HAZY unknown UCLAR unknow n unknown Clinic E [facility] COLOR_URINE unknown YELLOW unknown UCOL unknown unknown Clinic [facility] GLUCOSE_URIN unknown NEGATIVE unknown UGLUC unkn own unknown Clinic E_UA_ mg/dL [facility] KETONES_URIN unknown NEGATIVE unknown UKET unkn own unknown Clinic E_UA_ [facility] LEUKOCYTE_ES unknown MODERATE unknown ULEUK unkn own unknown Clinic TERASE_URINE [facility] NITRITE_URIN unknown NEGATIVE unknown UNITRITE un known unknown Clinic E [facility] PH_URINE unknown 5.5 unknown UPH unknown u [facility] T unknown NEGATIVE unknown UR_BILI unknown unknown Clinic [facility] T unknown HAZY unknown UR_CLARI unknown u [facility] TY [facility] T unknown YELLOW unknown UR_COLOR unknown u [facility] T unknown NEGATIVE unknown UR_GLU unknown u [facility] mg/dL [facility] T unknown NEGATIVE unknown UR_KETO_ unknown unknown Clinic UA_ [facility] T unknown MODERATE unknown UR_LEU_E unknown unknown Clinic STERASE [facility] T unknown NEGATIVE unknown UR_NIT unknown u [facility] T unknown 5.5 unknown UR_PH unknown unk [facility] T unknown <=1.005 unknown UR_SG unknown un known Clinic [facility] T unknown 0.2 unknown UR_URO unknown unk [facility] (NORMAL) [facility] T unknown 6-10 /HPF unknown UR_WBC unknown unknown Clinic [facility] SPECIFIC_GRA unknown <=1.005 unknown USG unkno wn unknown Clinic VITY_URINE [facility] UROBILINOGEN unknown 0.2 unknown UUROBIL unkno wn unknown Clinic _URINE (NORMAL) [facility] WBC_URINE unknown 6-10 /HPF unknown UWBC unknow n unknown Clinic [facility] DIPSTICK_URI unknown 5067 unknown _101400 unkno wn unknown Clinic NE_STRIP_LOT_ Primary NUMBER Care [facility] WBC_urine_on unknown 6-10 /HPF unknown _1016 unk nown unknown Clinic _microscopy [facility] Urine_HCG_QC unknown Yes unknown _[id number] unkno wn unknown Clinic _Result_CLIA_ Primary Waived_ Care & [facility] protein_urin unknown negative unknown _118 unkn own unknown Clinic e_semiquantit Primary ative_dipstic Care & k_ [facility] glucose_urin unknown negative unknown _123 unkn own unknown Clinic e_semiquantit Primary ative Care & [facility] Erythrocytes unknown negative unknown _13945-1 un known unknown Clinic _area_in_Urin Primary e_sediment_by Care & _Microscopy_h Ancillary igh_power_fie Services ld [facility] RBC_urine_di unknown negative unknown _[id number] un known unknown Clinic pstick [facility] Albumin_Pres unknown negative unknown _1753-3 unk nown unknown Clinic ence_in_Urine [facility] Glucose_Mass unknown NEGATIVE unknown _2350-7 unk nown unknown Clinic _volume_in_Ur mg/dL Primary ine Care & [facility] urine_color unknown YELLOW unknown _2751 unknown unknown Clinic [facility] urine_color unknown yellow unknown _2751 unknown unknown Clinic [facility] bilirubin_ur unknown NEGATIVE unknown _319 unkn own unknown Clinic ine [facility] bilirubin_ur unknown negative unknown _319 unkn own unknown Clinic ine [facility] ketones_urin unknown NEGATIVE unknown _322 unkn own unknown Clinic e_by_test_str Primary ip Care [facility] ketones_urin unknown negative unknown _322 unkn own unknown Clinic e_by_test_str Primary ip [facility] nitrite_urin unknown NEGATIVE unknown _323 unkn own unknown Clinic e_semiquantit Primary ative Care & [facility] nitrite_urin unknown negative unknown _323 unkn own unknown Clinic e_semiquantit Primary ative Care & [facility] pH_urine_sem unknown 6.5 unknown _324 unknow n unknown Clinic iquantitative [facility] specific_gra unknown <=1.005 unknown _325 unkno wn unknown Clinic vity_urine [facility] specific_gra unknown 1.005 unknown _325 unknow n unknown Clinic vity_urine [facility] urobilinogen unknown 0.2 unknown _326 unknow n unknown Clinic _urine_semiqu (NORMAL) Primary antitative_di Care & pstick_ [facility] urobilinogen unknown negative unknown _326 unkn own unknown Clinic _urine_semiqu Primary antitative_di Care & pstick_ [facility] leukocyte_es unknown 2+ unknown _327 unknow n unknown Clinic terase_urine_ Primary by_dipstick Care & [facility] leukocyte_es unknown MODERATE unknown _327 unkn own unknown Clinic terase_urine_ Primary by_dipstick Care & [facility] appearance_u unknown clear unknown _328 unknow n unknown Clinic rine [facility] glucose_urin unknown NEGATIVE unknown _3369 unkn own unknown Clinic e mg/dL [facility] urinalysis_r unknown Clean unknown _47 unknow n unknown Clinic outine Catch [facility] culture_stat unknown Yes unknown _51015 unknow n unknown Clinic us [facility] pH_study_of_ unknown 5.5 unknown _51641 unknow n unknown Clinic acidity [facility] clarity_urin unknown HAZY unknown _5589 unknow n unknown Clinic e_point [facility] Appearance_o unknown clear unknown _5767-9 unkno wn unknown Clinic f_Urine [facility] Bilirubin.to unknown NEGATIVE unknown _5770-3 unk nown unknown Clinic tal_Presence_ Primary in_Urine_by_T Care & est_strip [facility] Bilirubin.to unknown negative unknown _5770-3 unk nown unknown Clinic tal_Presence_ Primary in_Urine_by_T Care & est_strip [facility] Color_of_Uri unknown YELLOW unknown _5778-6 unkno wn unknown Clinic ne [facility] Color_of_Uri unknown yellow unknown _5778-6 unkno wn unknown Clinic ne [facility] Glucose_Mass unknown negative unknown _5792-7 unk nown unknown Clinic _volume_in_Ur Primary ine_by_Test_s Care & trip [facility] Ketones_Mass unknown NEGATIVE unknown _5797-6 unk nown unknown Clinic _volume_in_Ur Primary ine_by_Test_s Care & trip [facility] Ketones_Mass unknown negative unknown _5797-6 unk nown unknown Clinic _volume_in_Ur Primary ine_by_Test_s Care & trip [facility] Leukocyte_es unknown 2+ unknown _5799-2 unkno wn unknown Clinic terase_Presen Primary ce_in_Urine_b Care & y_Test_strip [facility] Leukocyte_es unknown MODERATE unknown _5799-2 unk nown unknown Clinic terase_Presen Primary ce_in_Urine_b Care & y_Test_strip [facility] Nitrite_Pres unknown NEGATIVE unknown _5802-4 unk nown unknown Clinic ence_in_Urine Primary _by_Test_stri Care & p [facility] Nitrite_Pres unknown negative unknown _5802-4 unk nown unknown Clinic ence_in_Urine Primary _by_Test_stri Care & p [facility] pH_of_Urine_ unknown 6.5 unknown _5803-2 unkno wn unknown Clinic by_Test_strip [facility] Specific_gra unknown <=1.005 unknown _5811-5 unkn own unknown Clinic vity_of_Urine Primary _by_Test_stri Care & p [facility] Specific_gra unknown 1.005 unknown _5811-5 unkno wn unknown Clinic vity_of_Urine Primary _by_Test_stri Care & p [facility] Urobilinogen unknown 0.2 unknown _5818-0 unkno wn unknown Clinic _Presence_in_ (NORMAL) Primary Urine_by_Test Care & _strip [facility] Urobilinogen unknown negative unknown _5818-0 unk nown unknown Clinic _Presence_in_ Primary Urine_by_Test Care & _strip [facility] WBC_urine_on unknown 6-10 /HPF unknown _5821-4 un known unknown Clinic _microscopy [facility] V[facility] Signs date measurement value source 20201230 BMI 33.45 kg/m2 20201230 BP_diastolic 97 mm[Hg] 20201230 BP_systolic 191 mm[Hg] 20201230 heart_rate 93 /min 20201230 height_metric 162.56 cm 20201230 height_standard 64 in 20201230 respiration_rate 14 /min 20201230 temperature_metric 36.28 C 20201230 temperature_standard 97.3 F 20201230 weight_metric 88.09 kg 20201230 weight_standard 194.2 lb 20201230 BMI 33.45 kg/m2 20201230 BP_diastolic 97 mm[Hg] 20201230 BP_systolic 191 mm[Hg] 20201230 heart_rate 93 /min 20201230 height_metric 162.56 cm 20201230 height_standard 64 in 20201230 respiration_rate 14 /min 20201230 temperature_metric 36.28 C 20201230 temperature_standard 97.3 F 20201230 weight_metric 88.09 kg 20201230 weight_standard 194.2 lb 20201230 BMI 33.45 kg/m2 20201230 BP_diastolic 97 mm[Hg] 20201230 BP_systolic 191 mm[Hg] 20201230 heart_rate 93 /min 20201230 height_metric 162.56 cm 20201230 height_standard 64 in 20201230 respiration_rate 14 /min 20201230 temperature_metric 36.28 C 20201230 temperature_standard 97.3 F 20201230 weight_metric 88.09 kg 20201230 weight_standard 194.2 lb date measurement value source 20210116 BMI 33.42 kg/m2 20210116 BP_diastolic 110 mm[Hg] 20210116 BP_systolic 207 mm[Hg] 20210116 heart_rate 90 /min 20210116 height_metric 162.56 cm 20210116 height_standard 64 in 20210116 respiration_rate 16 /min 20210116 temperature_metric 37.11 C 20210116 temperature_standard 98.8 F 20210116 weight_metric 88 kg 20210116 weight_standard 194 lb 20210116 BMI 33.42 kg/m2 20210116 BP_diastolic 110 mm[Hg] 20210116 BP_systolic 207 mm[Hg] 20210116 heart_rate 90 /min 20210116 height_metric 162.56 cm 20210116 height_standard 64 in 20210116 respiration_rate 16 /min 20210116 temperature_metric 37.11 C 20210116 temperature_standard 98.8 F 20210116 weight_metric 88 kg 20210116 weight_standard 194 lb Social History date description facility [id number]
== END 2021-01-27 23:59 | disposition home or self-care (01) ==
LOC: LAB.S 08:00
PROVIDERS: ATTEND Emergency Medicine
DX: R30.0 Dysuria (principal)
CPT/HCPCS: 81001; 82962; 87077; 87086; 87181

== ENCOUNTER 2021-02-01 08:00 | Outpatient (CLI) | payer MEDICARE, OTHER ==
[2021-02-01 20:29] LABS: BILIRUBIN,URINE NEGATIVE (NEGATIVE); GLUCOSE, URINE (UA) 100 mg/dL (NEGATIVE); KETONES,URINE (UA) NEGATIVE (NEGATIVE); LEUKOCYTE ESTERASE, URINE MODERATE (NEGATIVE); NITRITE,URINE POSITIVE (NEGATIVE); OCCULT BLOOD,URINE TRACE-INTA (NEGATIVE); PROTEIN,URINE 30 mg/dL (NEGATIVE); UROBILINOGEN,URINE 2 E.U./dL (NORMAL)
[2021-02-01 20:47] LABS: BACTERIA,URINE Few /HPF (None Seen); CLARITY,URINE HAZY (CLEAR); RBC,URINE 0-5 /HPF (0-5); SQUAMOUS EPITHELIAL CELL,UR FEW Squamous (<= Few)
== END 2021-02-01 23:59 | disposition home or self-care (01) ==
LOC: LAB.S 08:00
PROVIDERS: ATTEND Emergency Medicine
DX: R30.0 Dysuria (principal)
CPT/HCPCS: 81001; 87086

== ENCOUNTER 2022-06-30 08:00 | Outpatient (CLI) | payer MEDICARE, OTHER | END 2022-06-30 23:59 | disposition home or self-care (01) | LOC: LAB.S 08:00 | PROVIDERS: ATTEND Physician Assistant | DX: N30.90 Cystitis, unspecified without hematuria (principal) | CPT/HCPCS: 87077; 87086; 87181 ==

== ENCOUNTER 2022-10-26 07:00 | Outpatient (CLI) | payer MEDICARE, OTHER ==
[2022-10-26 15:07] LABS: BILIRUBIN,URINE NEGATIVE (NEGATIVE); GLUCOSE, URINE (UA) NEGATIVE (NEGATIVE); KETONES,URINE (UA) NEGATIVE (NEGATIVE); LEUKOCYTE ESTERASE, URINE SMALL (NEGATIVE); NITRITE,URINE NEGATIVE (NEGATIVE); OCCULT BLOOD,URINE NEGATIVE (NEGATIVE); PROTEIN,URINE NEGATIVE (NEGATIVE); UROBILINOGEN,URINE 0.2 (NORMAL) E.U./dL (NORMAL)
[2022-10-26 15:13] LABS: CLARITY,URINE CLEAR (CLEAR)
[2022-10-26 15:33] LABS: AMORPHOUS SEDIMENT,UR Few /LPF; BACTERIA,URINE Few /HPF (None Seen); RBC,URINE 0-5 /HPF (0-5); SQUAMOUS EPITHELIAL CELL,UR FEW Squamous (<= Few)
== END 2022-10-26 23:59 | disposition home or self-care (01) ==
LOC: LAB.S 07:00
PROVIDERS: ATTEND Nurse Practitioner
DX: R30.0 Dysuria (principal)
CPT/HCPCS: 81001; 87086

== ENCOUNTER 2023-01-29 08:00 | Outpatient (CLI) | payer MEDICARE, OTHER | END 2023-01-29 23:59 | disposition home or self-care (01) | LOC: LAB.S 08:00 | PROVIDERS: ATTEND Physician Assistant Medical | DX: N30.90 Cystitis, unspecified without hematuria (principal) | CPT/HCPCS: 87086 ==

== ENCOUNTER 2023-05-24 14:29 | Outpatient (CLI) | payer MEDICARE, OTHER | END 2023-05-24 23:59 | disposition critical access hospital (66) | LOC: EMS 14:29 | DX: R41.0 Disorientation, unspecified (principal); R51.9 Headache, unspecified; I10 Essential (primary) hypertension | CPT/HCPCS: A0425; A0429 ==

== ENCOUNTER 2023-05-24 15:28 | Inpatient (IN) | payer MEDICARE, OTHER ==
[2023-05-24] MEDS ORDERED: ENALAPRILAT 1.25 MG/ML VIAL IVP STA (15:55)
[2023-05-24] MEDS ORDERED: KETOROLAC 15 MG/ML VIAL IVP STA (15:55)
[2023-05-24 16:11] LABS: BILIRUBIN,URINE NEGATIVE (NEGATIVE); GLUCOSE, URINE (UA) NEGATIVE (NEGATIVE); KETONES,URINE (UA) NEGATIVE (NEGATIVE); LEUKOCYTE ESTERASE, URINE SMALL (NEGATIVE); NITRITE,URINE NEGATIVE (NEGATIVE); OCCULT BLOOD,URINE NEGATIVE (NEGATIVE); PROTEIN,URINE NEGATIVE (NEGATIVE); UROBILINOGEN,URINE 0.2 (NORMAL) E.U./dL (NORMAL)
[2023-05-24 16:17] LABS: CLARITY,URINE CLEAR (CLEAR)
--- NOTE | 2023-05-24 16:26 | ED Physician Documentation ---
PD HPI ALTERED MENTAL STATUS - Stated complaint Stated Complaint: CONFUSION - Chief complaint Chief Complaint: Neuro - History obtained from History obtained from: Patient - History of Present Illness Timing - onset: How many weeks ago (The patient states she has been feeling some level of confusion and disorientation intermittently over the last couple of weeks. More noticeable the last several days. She states she has had a headache for the last week and a half.) Timing - duration: Weeks (1-2) Timing - details: Gradual onset, Still present, Waxing and waning Quality / character: Confused (feeling of not knowing what is happening at times. disoriented to events at times. Some trouble completing sentences, word search.), Disoriented Associated symptoms: Headache (for 1 1/2 weeks). No: Fever, Stiff neck, Dyspnea, Cough, NVD Contributing factors: No: Recent med change, Recent illness Basline status: Alert and oriented X 3, Ambulatory Similar symptoms before: Has not had sx before Recently seen: Emergency Dept (She was seen here in the ER approximately 8 days ago for anxiety and confusion. Had labs and a CT of the head at that time. Diagnosed anxiety and UTI.) Review of Systems Constitutional: denies: Fever Eyes: reports: Decreased vision Ears: reports: Loss of hearing (decreased both ears). denies: Tinnitus/ringing Nose: denies: Rhinorrhea / runny nose, Congestion Throat: denies: Sore throat Cardiac: denies: Chest pain / pressure, Palpitations Respiratory: denies: Dyspnea, Cough GI: denies: Abdominal Pain, Nausea, Vomiting, Diarrhea Skin: denies: Rash, Lesions Musculoskeletal: denies: Extremity swelling Neurologic: reports: Confused, Headache. denies: Focal weakness, Near syncope, Head injury PD PAST MEDICAL HISTORY - Past Medical History Endocrine/Autoimmune: HyPOthyroidism Psych: Anxiety, Post traumatic stress disorder - Present Medications Home Medications: Ambulatory Orders Medication Instructions Recorded Confirmed cephALEXin [Keflex] 500 mg PO BID #14 cap 05/16/23 - Allergies Allergies/Adverse Reactions: Allergies Allergy/AdvReac Type Severity Reaction Status Date / Time Sulfa (Sulfonamide Allergy Edema Verified 05/16/23 15:18 Antibiotics) PD ED PE NORMAL - Vitals Vital signs reviewed: Yes - General General: Alert and oriented X 3, No acute distress, Well developed/nourished - HEENT HEENT: Atraumatic, Pharynx benign - Neck Neck: Supple, no meningeal sign, No adenopathy - Cardiac Cardiac: RRR, No murmur - Respiratory Respiratory: Clear bilaterally - Abdomen Abdomen: Soft, Non tender - Derm Derm: Normal color, Warm and dry - Extremities Extremities: Normal ROM s pain, No edema - Neuro Neuro: Alert and oriented X 3, No motor deficit, No sensory deficit, Normal speech Results - Vitals Vitals: Vital Signs - 24 hr 05/24/23 05/24/23 05/24/23 15:34 15:44 17:05 Temperature 36.6 C Heart Rate 87 79 76 Respiratory 16 16 16 Rate Blood Pressure 219/111 H 222/105 H 182/99 H O2 Saturation 100 100 100 05/24/23 17:27 Temperature Heart Rate 71 Respiratory 16 Rate Blood Pressure 203/93 H O2 Saturation 100 Oxygen O2 Source Room air - EKG (time done) 16:13 EKG releavant findings:: EKG personally interpreted by author of this note. Relevant findings are: Rate: Rate (enter#) (84) Rhythm: NSR, Other (occasional PVCs. ) [place]: Normal Intervals: Normal MS QRS: Normal Ischemia: Normal ST segments. No: ST elevation c/w ischemia, ST depression - Labs Labs: Laboratory Tests 05/24/23 05/24/23 05/24/23 16:06 16:23 16:23 WBC 6.9 RBC 4.40 Hgb 13.2 Hct 40.9 MCV 93.0 MCH 30.0 MCHC 32.3 RDW 12.7 Plt Count 212 MPV 11.0 H Neut # (Auto) 4.7 Lymph # (Auto) 1.6 [place] # (Auto) 0.5 Eos # (Auto) 0.1 Baso # (Auto) 0.0 Absolute Nucleated RBC 0.00 Nucleated RBC % 0.0 ESR Sodium 139 Potassium 3.6 Chloride 104 Carbon Dioxide 28 Anion Gap 7.0 BUN 22 H Creatinine 1.0 Estimated GFR (MDRD) 54 L Glucose 98 Calcium 9.9 Magnesium 2.0 Total Bilirubin 0.4 AST 21 ALT 15 Alkaline Phosphatase 66 Total Protein 7.9 Albumin 4.5 Globulin 3.4 Albumin/Globulin Ratio 1.3 Lipase 38 TSH 4.18 Urine Color YELLOW Urine Clarity CLEAR Urine pH 7.0 Ur Specific [place] 1.010 Urine Protein NEGATIVE Urine Glucose (UA) NEGATIVE Urine Ketones NEGATIVE Urine Occult Blood NEGATIVE Urine Nitrite NEGATIVE Urine Bilirubin NEGATIVE Urine Urobilinogen 0.2 (NORMAL) Ur Leukocyte Esterase SMALL H Urine RBC None Seen Urine WBC 6-10 H Ur Squamous Epith Cells FEW Squamous Urine Bacteria Rare Ur Microscopic Review INDICATED Urine Culture Comments INDICATED 05/24/23 16:23 WBC RBC Hgb Hct MCV MCH MCHC RDW Plt Count MPV Neut # (Auto) Lymph # (Auto) [place] # (Auto) Eos # (Auto) Baso # (Auto) Absolute Nucleated RBC Nucleated RBC % ESR 18 Sodium Potassium Chloride Carbon Dioxide Anion Gap BUN Creatinine Estimated GFR (MDRD) Glucose Calcium Magnesium Total Bilirubin AST ALT Alkaline Phosphatase Total Protein Albumin Globulin Albumin/Globulin Ratio Lipase TSH Urine Color Urine Clarity Urine pH Ur Specific [place] Urine Protein Urine Glucose (UA) Urine Ketones Urine Occult Blood Urine Nitrite Urine Bilirubin Urine Urobilinogen Ur Leukocyte Esterase Urine RBC Urine WBC Ur Squamous Epith Cells Urine Bacteria Ur Microscopic Review Urine Culture Comments - Rads (name of study) head CT Relevant Findings:: Prelim report reviewed (no acute process. no ICH. ), See rad report PD Medical Decision Making - ED course Complexity details: reviewed old records (ED visit from 8 days ago. ), reviewed results, considered differential (She is having some confusion and disorientation. She says she has had a headache. Blood pressure is elevated here. Review of the blood pressure on recent ER visit was also over 200. Consider hypertensive urgency versus bleed/ edema. She did have a CT scan 8 days ago that was normal.), d/w patient, d/w family ( gave independent info about her symptoms. ) ED course: The patient has had headache and confusion for 1-1/2 weeks or so according to her and her . There had been some level of forgetfulness prior to that but acutely changed in the above timeframe according to the . She was seen in the ER 8 days ago for similar. Had normal labs and head CT. Treated with cephalexin for possible UTI. The culture came back showing mixed flaca. The patient's symptoms have not really improved this past week. Seemed more confused a bit today. She describes or relates her "confusion" as being foggy thought process with forgetfulness and at times not fully understanding events around her. This is not consistent but fairly frequent and undulating in severity. No localized weaknesses. No illness otherwise such as fevers upper respiratory symptoms nausea vomiting diarrhea skin rash etc. We did do a CT scan again today to ensure no bleeds or acute swelling in the context of her still having quite elevated blood pressure. Review of the blood pressure on last ER visit was also similarly elevated. She does not check her blood pressure regularly at home but perhaps once a month or so. She had not checked at the last 2 weeks. Consideration would be for hypertensive encephalopathy or urgency. Her blood pressure was elevated here and remained so after several readings. She was given enalapril IV single dose. It was briefly down to 180 systolic but then back up to 203 shortly after. At this point I believe her symptoms relate to hypertensive process. I placed her on a nicardipine drip and will talk with the hospitalist. The patient's is in agreement. The patient is a little reluctant to be in the hospital better says it is for the best and she is in agreement. She was giving ketorolac as well for the headache. Avoiding any opiate type I so as to not confuse with the underlying confusion. I believe her headache will improve as the blood pressure comes down. Otherwise her blood count and chemistry panel electrolytes and renal function are unchanged from a week ago. The urine culture from the did not show any true growth. We can discontinue the antibiotic. Departure - Departure Disposition: ED Place in Observation Clinical Impression: Confusion, Headache, Hypertensive urgency Condition: Stable Record reviewed to determine appropriate education?: Yes Forms: PCP List
[2023-05-24 16:31] LABS: BASOPHILS % (AUTO) 0.3 %; EOSINOPHILS # (AUTO) 0.1 10^3/uL (0.0-0.7); HCT - HEMATOCRIT 40.9 % (37.0-47.0); HGB - HEMOGLOBIN 13.2 g/dL (12.0-16.0); LYMPHOCYTES # (AUTO) 1.6 10^3/uL (1.5-3.5); LYMPHOCYTES % (AUTO) 22.6 %; MEAN CORPUSCULAR HGB CONC 32.3 g/dL (32.0-36.0); MONOCYTES # (AUTO) 0.5 10^3/uL (0.0-1.0); MONOCYTES % (AUTO) 7.8 %; NEUTROPHILS # (AUTO) 4.7 10^3/uL (1.5-6.6); NEUTROPHILS % (AUTO) 68.2 %; PLT - PLATELET COUNT 212 10^3/uL (130-450); RED CELL DISTRIBUTION WIDTH 12.7 % (12.0-15.0); WHITE BLOOD COUNT 6.9 x10^3/uL (4.8-10.8)
[2023-05-24 16:33] LABS: BACTERIA,URINE Rare /HPF (None Seen); RBC,URINE None Seen /HPF (0-5); SQUAMOUS EPITHELIAL CELL,UR FEW Squamous (<= Few)
[2023-05-24 16:44] LABS: ALBUMIN 4.5 g/dL (3.2-5.5); ALBUMIN/GLOBULIN RATIO 1.3 (1.0-2.2); BILIRUBIN,TOTAL 0.4 mg/dL (0.2-1.0); CALCIUM 9.9 mg/dL (8.5-10.3); POTASSIUM 3.6 mmol/L (3.5-4.5); TOTAL PROTEIN 7.9 g/dL (6.4-8.9)
[2023-05-24 16:58] LABS: THYROID STIMULATING HORMONE 4.18 uIU/mL (0.34-5.60)
--- NOTE | 2023-05-24 17:03 | CT Report ---
PROCEDURE: HEAD WO INDICATIONS: confused for 1-2 weeks TECHNIQUE: Noncontrast 4.5 mm thick angled axial sections acquired from the foramen magnum to the vertex. For r adiation dose reduction, the following was used: automated exposure control, adjustment of mA and/or kV according to patient size. COMPARISON: 05/16/2023. FINDINGS: Image quality: Excellent. CSF spaces: Basal cisterns are patent. No extra-axial fluid collections. Ventricles are normal in size and shape. Brain: No midline shift. No intracranial masses or hemorrhage. San-white matter interface is norm al. Intracranial carotid calcifications. Age-related volume loss and mild small vessel ischemic scott e. Skull and face: Calvarium and visualized facial bones are intact, without suspicious lesions. Sinuses: Visualized sinuses and mastoids are clear. IMPRESSION: Stable examination. No acute intracranial process. Reviewed by: Saleem Mabry MD on 05/24/2023 5:02 PM PDT Approved by: Saleem Mabry MD on 05/24/2023 5:02 PM PDT Station ID: [id number]
[2023-05-24] MEDS ORDERED: NICARDIPINE HCL 25 MG in SODIUM CHLORIDE 0.9% 240 ML IV STA (17:27)
[2023-05-24] MEDS ORDERED: ONDANSETRON ODT 4 MG TABLET TL PRN (17:57)
[2023-05-24] MEDS ORDERED: TEMAZEPAM 15 MG CAPSULE PO PRN (17:57)
[2023-05-24] MEDS ORDERED: SODIUM CHLORIDE FLUSH 0.9% 10 ML SYRINGE IVP PRN (17:57)
[2023-05-24] MEDS ORDERED: ACETAMINOPHEN 325 MG TABLET PO PRN (17:57)
[2023-05-24] MEDS ORDERED: IBUPROFEN 600 MG TABLET PO PRN (17:57)
--- NOTE | 2023-05-24 18:08 | HISTORY & PHYSICAL EXAMINATION ---
Chief Complaint - Chief Complaint Chief Complaint: Headache and confusion Stroke/TIA/Neuro Template - Admitted From Admitted from: ED - History Obtained From Records Reviewed: RN notes reviewed History obtained from: Patient, Family Exam limitations: No limitations - History of Present Illness Problem Location Description: Confusion ongoing for several days Severity at the worst: reports: Moderate Symptom Quality: reports: Headache, Expressive aphasia, Other (Patient mainly complains of headache and confusion but occasionally has stuttering and expressive aphasia) Context- Symptoms started w/: reports: Awake Timing: reports: Gradual onset Duration: reports: Days: Improved with: reports: Rest Worsened by: reports: Other (Stress, anxiety) Associated symptoms: denies: Shortness of air, Diaphoresis, Nausea, Vomiting, Fe eling faint / dizzy, General Weakness, Palpitations HPI Comment/Other: Patient is a 73-year-old female with a PMH of hypertension on lisinopril, generalized anxiety, PTSD from the loss of her son in 2019 currently undergoing therapy and psychiatric care, who presents to the ED with confusion and headache. She has been having similar symptoms over the last couple of weeks with most notable symptoms in the last few days.She was in the ED on 05/16/2023 for the same symptoms. At that time her blood pressure was also elevated. She was discharged home after treatment. She denies any focal neurological deficits such as extremity weakness, facial droop, blurry vision, with the exception of the headache and the generalized confusion with occasional difficulty speaking that she says has actually been going on for some time since her son in 2019. She reports that it gets worse with stress and her who is at the bedside also supports this stating that when she is anxious, around other people, or in stressful situations her speech gets worse but otherwise recovers and normalizes. In the last few days this pattern has continued and has not developed any new symptoms such as more classic expressive aphasia as seen in stroke symptoms. Today in the ED her work-up was generally unremarkable.Head CT showed no acute abnormalities. Lab work was unrevealing. However her blood pressure has been persistently elevated with systolic over 200 and diastolic in the 90-100 range despite IV labetalol. Given the persistence of her symptoms, hospital admission was requested. Patient was started on nicardipine drip in the ED. She will be admitted to the ICU. PMH/PSH - Past Medical History Endocrine/Autoimmune: positive: HyPOthyroidism Psych: positive: Anxiety, Post traumatic stress disorder Social & Family Hx - Living Situation Living Arrangement: At home Living Situation: With spouse/s.o. - Social History Does the pt smoke?: No Smoking Status: Never smoker Does the pt drink ETOH?: No Does the pt have substance abuse?: No - POLST Patient has POLST: No POLST Status: Full Code - Family History Family History: Mother: Mental Illness (Anxiety) Meds/Allgy - Home Medications Home Medications: Ambulatory Orders Medication Instructions Recorded Confirmed cephALEXin [Keflex] 500 mg PO BID #14 cap 05/16/23 - Allergies Allergies/Adverse Reactions: Allergies Allergy/AdvReac Type Severity Reaction Status Date / Time Sulfa (Sulfonamide Allergy Edema Verified 05/16/23 15:18 Antibiotics) Review of Systems - Constitutional Constitutional: denies: Fatigue, Fever, Chills, Weakness - Cardiovascular Cariovascular: denies: Palpitations, Chest pain - Respiratory Respiratory: denies: Cough, SOB at rest - Gastrointestinal Gastrointestinal: denies: Abdominal pain - Neurological Neurological: reports: Headache, Other (Confusion and occasional speech impediment with stuttering and word finding difficulty). denies: General weakness, Focal weakness, Dizziness, Numbness, Memory problems, Pre-existing d eficit, Abnormal gait, Seizures, Incoordination, Slurred speech - Psychiatric Psychiatric: reports: Anxiety, Delusions - All Other Systems All Other Systems: reports: Reviewed and negative Prior Level of Functionality: Independent and ambulatory Exam - Vital Signs Reviewed Vital Signs: Yes Vital Signs: Vital Signs x48h Temp Pulse Resp BP Pulse Ox 05/24/23 17:55 63 16 179/80 H 98 05/24/23 17:27 71 16 203/93 H 100 05/24/23 17:05 76 16 182/99 H 100 05/24/23 15:44 79 16 222/105 H 100 05/24/23 15:34 36.6 C 87 16 219/111 H 100 - Physical Exam General Appearance: positive: No acute distress Eyes Bilateral: positive: Normal inspection, EOMI ENT: positive: ENT inspection nml Neck: positive: Nml inspection Respiratory: positive: Chest non-tender, No respiratory distress, Breath sounds nml Cardiovascular: positive: Regular rate & rhythm, No murmur, No gallop Peripheral Pulses: positive: 2+ Abdomen: positive: Non-tender, No organomegaly, Nml bowel sounds Skin: positive: Color nml Extremities: positive: Nml appearance, No pedal edema Neurologic/Psychiatric: positive: Oriented x3, CN's nml (2-12), Sensation nml, Other (Through most of the exam the patient's speech was normal towards the end when she admitted to feeling more anxious she had occasional stuttering but was able to find words for the most part. She does have a generally anxious affect). negative: Disoriented to person, Disoriented to place, Disoriented to time, Weakness, Sensory loss, Slurred/abnml speech, Depressed mood/affect Results - Lab Results Lab results reviewed: Yes Fish Bones: 05/24/23 16:23 05/24/23 16:23 Other Lab Results: Lab Results x24hrs 05/24/23 05/24/23 05/24/23 Range/Units 16:23 16:23 16:23 WBC 6.9 (4.8-10.8) x10^3/uL RBC 4.40 (4.20-5.40) 10^6/uL Hgb 13.2 (12.0-16.0) g/dL Hct 40.9 (37.0-47.0) % MCV 93.0 (81.0-99.0) fL MCH 30.0 (27.0-31.0) pg MCHC 32.3 (32.0-36.0) g/dL RDW 12.7 (12.0-15.0) % Plt Count 212 (130-450) 10^3/uL MPV 11.0 H (7.9-10.8) fL Neut # (Auto) 4.7 (1.5-6.6) 10^3/uL Lymph # (Auto) 1.6 (1.5-3.5) 10^3/uL [place] # (Auto) 0.5 (0.0-1.0) 10^3/uL Eos # (Auto) 0.1 (0.0-0.7) 10^3/uL Baso # (Auto) 0.0 (0.0-0.1) 10^3/uL Absolute Nucleated RBC 0.00 x10^3/uL Nucleated RBC % 0.0 /100WBC ESR 18 (0-30) mm/Hr Sodium 139 (135-145) mmol/L Potassium 3.6 (3.5-4.5) mmol/L Chloride 104 (101-111) mmol/L Carbon Dioxide 28 (21-32) mmol/L Anion Gap 7.0 (6-13) BUN 22 H (6-20) mg/dL Creatinine 1.0 (0.6-1.3) mg/dL Estimated GFR (MDRD) 54 L (>89) Glucose 98 (74-104) mg/dL Calcium 9.9 (8.5-10.3) mg/dL Magnesium 2.0 (1.7-2.3) mg/dL Total Bilirubin 0.4 (0.2-1.0) mg/dL AST 21 (10-42) IU/L ALT 15 (10-60) IU/L Alkaline Phosphatase 66 (42-121) IU/L Total Protein 7.9 (6.4-8.9) g/dL Albumin 4.5 (3.2-5.5) g/dL Globulin 3.4 (2.1-4.2) g/dL Albumin/Globulin Ratio 1.3 (1.0-2.2) Lipase 38 (11-82) U/L TSH 4.18 (0.34-5.60) uIU/mL Urine Color Urine Clarity (CLEAR) Urine pH (5.0-7.5) PH Ur Specific [place] (1.002-1.030) Urine Protein (NEGATIVE) mg/dL Urine Glucose (UA) (NEGATIVE) mg/dL Urine Ketones (NEGATIVE) mg/dL Urine Occult Blood (NEGATIVE) Urine Nitrite (NEGATIVE) Urine Bilirubin (NEGATIVE) Urine Urobilinogen (NORMAL) E.U./dL Ur Leukocyte Esterase (NEGATIVE) Urine RBC (0-5) /HPF Urine WBC (0-5) /HPF Ur Squamous Epith Cells (<= Few) Urine Bacteria (None Seen) /HPF Ur Microscopic Review Urine Culture Comments 05/24/23 Range/Units 16:06 WBC (4.8-10.8) x10^3/uL RBC (4.20-5.40) 10^6/uL Hgb (12.0-16.0) g/dL Hct (37.0-47.0) % MCV (81.0-99.0) fL MCH (27.0-31.0) pg MCHC (32.0-36.0) g/dL RDW (12.0-15.0) % Plt Count (130-450) 10^3/uL MPV (7.9-10.8) fL Neut # (Auto) (1.5-6.6) 10^3/uL Lymph # (Auto) (1.5-3.5) 10^3/uL [place] # (Auto) (0.0-1.0) 10^3/uL Eos # (Auto) (0.0-0.7) 10^3/uL Baso # (Auto) (0.0-0.1) 10^3/uL Absolute Nucleated RBC x10^3/uL Nucleated RBC % /100WBC ESR (0-30) mm/Hr Sodium (135-145) mmol/L Potassium (3.5-4.5) mmol/L Chloride (101-111) mmol/L Carbon Dioxide (21-32) mmol/L Anion Gap (6-13) BUN (6-20) mg/dL Creatinine (0.6-1.3) mg/dL Estimated GFR (MDRD) (>89) Glucose (74-104) mg/dL Calcium (8.5-10.3) mg/dL Magnesium (1.7-2.3) mg/dL Total Bilirubin (0.2-1.0) mg/dL AST (10-42) IU/L ALT (10-60) IU/L Alkaline Phosphatase (42-121) IU/L Total Protein (6.4-8.9) g/dL Albumin (3.2-5.5) g/dL Globulin (2.1-4.2) g/dL Albumin/Globulin Ratio (1.0-2.2) Lipase (11-82) U/L TSH (0.34-5.60) uIU/mL Urine Color YELLOW Urine Clarity CLEAR (CLEAR) Urine pH 7.0 (5.0-7.5) PH Ur Specific [place] 1.010 (1.002-1.030) Urine Protein NEGATIVE (NEGATIVE) mg/dL Urine Glucose (UA) NEGATIVE (NEGATIVE) mg/dL Urine Ketones NEGATIVE (NEGATIVE) mg/dL Urine Occult Blood NEGATIVE (NEGATIVE) Urine Nitrite NEGATIVE (NEGATIVE) Urine Bilirubin NEGATIVE (NEGATIVE) Urine Urobilinogen 0.2 (NORMAL) (NORMAL) E.U./dL Ur Leukocyte Esterase SMALL H (NEGATIVE) Urine RBC None Seen (0-5) /HPF Urine WBC 6-10 H (0-5) /HPF Ur Squamous Epith Cells FEW Squamous (<= Few) Urine Bacteria Rare (None Seen) /HPF Ur Microscopic Review INDICATED Urine Culture Comments INDICATED - Diagnostic Imaging Results Diagnostic Imaging Results: positive: Final report reviewed - EKG Results EKG Interpreted Independently: Yes Sepsis Event Note (H) - Evaluation Current Stage of Sepsis: Ruled out Impression/Plan - Problem List Problem List: #Hypertensive encephalopathy #Hypertensive urgency * Patient with history of hypertension, but patient and are poor historians and do not recall exact details * reports that she is supposed to be on lisinopril * Patient was given enalapril x1 in the ED and blood pressure briefly came down to 180 systolic but then climbed back over to 210 * Based on patient's recurrence of symptoms over the last week and with her mental status complicating the picture causing concern for compliance observation admission was requested * Patient was started on nicardipine drip and will be admitted to the ICU * We will start lisinopril 40 mg p.o. in the a.m. * Pending blood pressure improvement will need to titrate home medications to better control blood pressure * I do suspect that her generalized anxiety and PTSD are worsening her blood pressure but discussed with the patient that this alone is not enough to explain such high blood pressure readings which are likely further exacerbating her anxiety in a cyclic manner * Pending clinical improvement and BP control, can likely d/c home in 1-2 days #PTSD #Anxiety * Patient is visibly anxious in the ED at the time of admission * She is currently under the care of a therapist and a prescribing psychiatric nurse practitioner * She was prescribed medications but does not recall which ones, stating that several have been tried and so far none have been very helpful * Will prescribe Vistaril as needed for anxiety symptoms while inpatient trying to avoid benzodiazepine use as this may complicate the interpretation of the response to antihypertensive medications #Headache * Likely secondary to hypertensive urgency * Goal of therapy will to be control blood pressure * As needed Tylenol, ibuprofen, and IV Toradol to be used as needed * Opiates to be used as last resort to avoid adding to any confusion #DVT Px * SCD's Core Measures - Anticipated LOS I expect patient to be DC'd or transferred within 96 hours.: Yes - DVT/VTE - Prophylaxis VTE/DVT Device ordered at admit?: Yes
[2023-05-24] MEDS ORDERED: KETOROLAC 15 MG/ML VIAL IVP PRN (18:13)
[2023-05-24] MEDS ORDERED: POTASSIUM CHLORIDE 20 MEQ TABLET PO ONE (19:41)
[2023-05-25] MEDS: POTASSIUM CHLORIDE 20 MEQ TABLET PO SCH ×2 (00:58→03:51)
[2023-05-25] MEDS: SODIUM CHLORIDE FLUSH 0.9% 10 ML SYRINGE IVP SCH ×4 (00:59→23:52)
[2023-05-25 05:07] LABS: BASOPHILS % (AUTO) 0.4 %; EOSINOPHILS # (AUTO) 0.1 10^3/uL (0.0-0.7); EOSINOPHILS % (AUTO) 2.2 %; HGB - HEMOGLOBIN 13.2 g/dL (12.0-16.0); LYMPHOCYTES # (AUTO) 1.5 10^3/uL (1.5-3.5); LYMPHOCYTES % (AUTO) 32.9 %; MEAN CORPUSCULAR HEMOGLOBIN 29.9 pg (27.0-31.0); MEAN CORPUSCULAR HGB CONC 32.2 g/dL (32.0-36.0); MEAN CORPUSCULAR VOLUME 92.8 fL (81.0-99.0); MEAN PLATELET VOLUME 10.8 fL (7.9-10.8); MONOCYTES # (AUTO) 0.4 10^3/uL (0.0-1.0); MONOCYTES % (AUTO) 9.5 %; NEUTROPHILS # (AUTO) 2.5 10^3/uL (1.5-6.6); NEUTROPHILS % (AUTO) 54.6 %; PLT - PLATELET COUNT 209 10^3/uL (130-450); RED BLOOD COUNT 4.42 10^6/uL (4.20-5.40); RED CELL DISTRIBUTION WIDTH 12.7 % (12.0-15.0); WHITE BLOOD COUNT 4.7 x10^3/uL (4.8-10.8)
[2023-05-25 05:10] LABS: CALCIUM, IONIZED 1.17 mmol/L (1.15-1.33); VBG PH 7.364 (7.31-7.41)
[2023-05-25 05:20] LABS: CALCIUM 9.4 mg/dL (8.5-10.3); CREATININE 0.7 mg/dL (0.6-1.3)
[2023-05-25 05:45] LABS: PHOSPHORUS 3.6 mg/dL (3.7-7.2)
[2023-05-25] MEDS: lisinopriL 20 MG TABLET PO SCH (08:52)
[2023-05-25] MEDS: hydrOXYzine PAMOATE 25 MG CAPSULE PO PRN ×2 (10:01→23:36)
--- NOTE | 2023-05-25 15:19 | PHARMACY PROGRESS NOTE ---
- Best Possible Medication History Admit Date and Time: 05/24/23 1923 Processed by: Pharmacy Medication History completed: Yes Patient Interview: Completed Secondary Source(s): Written medication list, Spouse/Significant other, Insurance records Per , Oleg, patient had multiple "psych" meds that were briefly prescribed by an BOBCAT DRIVER/LABOR but then were discontinued (sertraline, fluoxetine, mirtazapine, valproic acid). As the person ultimately responsible for medication therapy, providers are able to order a medication from an existing home medication list in [facility] via the "Reconcile Routine" prior to Confirmation of that medication by support engineer. Such practice is discouraged except when the physician, in their clinical judgment, deems that a medical need exists for a medication without regard to previous use.
--- NOTE | 2023-05-25 17:11 | PROVIDER PROGRESS NOTE ---
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 She is currently under the care of a therapist. And the prescribing psychiatric nurse practitioner is involved also. Patient does not recall all of her medications at this time. (2) Hypertensive urgency Assessment/Plan: Patient was started on IV nicardipine drip due to the persistent elevated blood pressures up into the 200 range with headache. She responded to this overnight and nicardipine drip was DC'd and has now been placed on lisinopril 40 mg daily and will monitor. Her symptomatology associated with her hypertensive urgency have markedly improved with better blood pressure control. - Current Meds Current Meds: Current Medications Generic Name Dose Route Start Last Admin Trade Name Freq PRN Reason Stop Dose Admin Hydroxyzine Pamoate 50 mg 05/24/23 18:16 05/25/23 10:01 Hydroxyzine Pamoate 25 Mg Capsule PO 50 mg Q6HR PRN Administration Anxiety Lisinopril 40 mg 05/25/23 09:00 05/25/23 08:52 Lisinopril 20 Mg Tablet PO 40 mg DAILY CAROLINE Administration Sodium Chloride 10 ml 05/25/23 01:00 05/25/23 08:52 Sodium Chloride Flush 0.9% 10 Ml Syringe IVP 10 ml 0100,0900,1700 CAROLINE Administration - Lab Result Fish Bone Diagrams: 05/25/23 04:39 05/25/23 04:39 - Additional Planning My Orders: My Active Orders 05/25/23 Evaluate and Treat OT [OT] Routine Evaluate and Treat PT [PT] Routine 05/25/23 Dinner Cardiac Diet [DIET] Subjective - Subjective Patient Reports: Feeling Better Objective Vital Signs: Vital Signs - 24 hr 05/24/23 05/24/23 05/24/23 17:27 17:55 18:09 Temperature Heart Rate 71 63 80 Heart Rate [ Monitoring electrodes] Respiratory 16 16 16 Rate Blood Pressure 203/93 H 179/80 H 167/84 H Blood Pressure [Right Brachial artery] O2 Saturation 100 98 99 05/24/23 05/24/23 05/24/23 18:20 19:00 20:00 Temperature 36.6 C Heart Rate 73 Heart Rate [ 74 76 Monitoring electrodes] Respiratory 16 15 14 Rate Blood Pressure 134/68 H Blood Pressure 126/72 131/72 H [Right Brachial artery] O2 Saturation 100 99 99 05/24/23 05/24/23 05/24/23 21:00 22:00 23:00 Temperature 36.5 C Heart Rate Heart Rate [ 65 63 60 Monitoring electrodes] Respiratory 15 14 16 Rate Blood Pressure Blood Pressure 94/53 L 130/62 93/54 L [Right Brachial artery] O2 Saturation 97 97 96 05/25/23 05/25/23 05/25/23 00:00 01:00 02:00 Temperature Heart Rate Heart Rate [ 58 L 62 54 L Monitoring electrodes] Respiratory 15 14 14 Rate Blood Pressure Blood Pressure 106/54 L 116/81 H 108/61 [Right Brachial artery] O2 Saturation 96 100 98 05/25/23 05/25/23 05/25/23 03:00 04:00 05:00 Temperature 36.5 C Heart Rate Heart Rate [ 60 69 60 Monitoring electrodes] Respiratory 14 16 14 Rate Blood Pressure Blood Pressure 137/70 H 135/67 H 114/62 [Right Brachial artery] O2 Saturation 99 100 99 05/25/23 05/25/23 05/25/23 06:00 07:00 08:00 Temperature 36.7 C 36.8 C Heart Rate Heart Rate [ 65 65 77 Monitoring electrodes] Respiratory 15 17 19 Rate Blood Pressure Blood Pressure 124/62 130/61 94/72 [Right Brachial artery] O2 Saturation 99 100 100 05/25/23 05/25/23 05/25/23 08:52 09:00 10:00 Temperature Heart Rate Heart Rate [ 67 85 Monitoring electrodes] Respiratory 14 15 Rate Blood Pressure Blood Pressure 108/59 L 113/50 L 116/100 H [Right Brachial artery] O2 Saturation 100 100 05/25/23 05/25/23 05/25/23 11:00 12:00 12:23 Temperature Heart Rate Heart Rate [ 85 85 Monitoring electrodes] Respiratory 18 16 Rate Blood Pressure Blood Pressure 145/86 H 184/85 H 167/78 H [Right Brachial artery] O2 Saturation 100 100 05/25/23 05/25/23 05/25/23 13:00 14:50 16:46 Temperature 36.4 C L 36.9 C Heart Rate Heart Rate [ 66 75 76 Monitoring electrodes] Respiratory 18 18 18 Rate Blood Pressure Blood Pressure 150/81 H 140/90 H 149/78 H [Right Brachial artery] O2 Saturation 98 100 Oxygen O2 Source Room air I&O (Last 24 Hrs): Intake and Output Totals x24h 05/23/23 05/24/23 05/25/23 23:59 23:59 23:59 Intake Total 250 900 Output Total 0 Balance 250 900 - Results Results: Laboratory Results WBC 4.7 x10^3/uL (4.8-10.8) L 05/25/23 04:39 RBC 4.42 10^6/uL (4.20-5.40) 05/25/23 04:39 Hgb 13.2 g/dL (12.0-16.0) 05/25/23 04:39 Hct 41.0 % (37.0-47.0) 05/25/23 04:39 MCV 92.8 fL (81.0-99.0) 05/25/23 04:39 MCH 29.9 pg (27.0-31.0) 05/25/23 04:39 MCHC 32.2 g/dL (32.0-36.0) 05/25/23 04:39 RDW 12.7 % (12.0-15.0) 05/25/23 04:39 Plt Count 209 10^3/uL (130-450) 05/25/23 04:39 MPV 10.8 fL (7.9-10.8) 05/25/23 04:39 Neut # (Auto) 2.5 10^3/uL (1.5-6.6) 05/25/23 04:39 Lymph # (Auto) 1.5 10^3/uL (1.5-3.5) 05/25/23 04:39 [place] # (Auto) 0.4 10^3/uL (0.0-1.0) 05/25/23 04:39 Eos # (Auto) 0.1 10^3/uL (0.0-0.7) 05/25/23 04:39 Baso # (Auto) 0.0 10^3/uL (0.0-0.1) 05/25/23 04:39 Absolute Nucleated RBC 0.00 x10^3/uL 05/25/23 04:39 Nucleated RBC % 0.0 /100WBC 05/25/23 04:39 ESR 18 mm/Hr (0-30) 05/24/23 16:23 VBG pH 7.364 (7.31-7.41) 05/25/23 04:39 Ionized Calcium 1.17 mmol/L (1.15-1.33) 05/25/23 04:39 Sodium 141 mmol/L (135-145) 05/25/23 04:39 Potassium 4.0 mmol/L (3.5-4.5) 05/25/23 04:39 Chloride 108 mmol/L (101-111) 05/25/23 04:39 Carbon Dioxide 27 mmol/L (21-32) 05/25/23 04:39 Anion Gap 6.0 (6-13) 05/25/23 04:39 BUN 15 mg/dL (6-20) 05/25/23 04:39 Creatinine 0.7 mg/dL (0.6-1.3) 05/25/23 04:39 Estimated GFR (MDRD) 82 (>89) L 05/25/23 04:39 Glucose 95 mg/dL (74-104) 05/25/23 04:39 Calcium 9.4 mg/dL (8.5-10.3) 05/25/23 04:39 Phosphorus 3.6 mg/dL (3.7-7.2) L 05/25/23 04:39 Magnesium 2.0 mg/dL (1.7-2.3) 05/25/23 04:39 Total Bilirubin 0.4 mg/dL (0.2-1.0) 05/24/23 16:23 AST 21 IU/L (10-42) 05/24/23 16:23 ALT 15 IU/L (10-60) 05/24/23 16:23 Alkaline Phosphatase 66 IU/L (42-121) 05/24/23 16:23 Total Protein 7.9 g/dL (6.4-8.9) 05/24/23 16:23 Albumin 4.5 g/dL (3.2-5.5) 05/24/23 16:23 Globulin 3.4 g/dL (2.1-4.2) 05/24/23 16:23 Albumin/Globulin Ratio 1.3 (1.0-2.2) 05/24/23 16:23 Lipase 38 U/L (11-82) 05/24/23 16:23 TSH 4.18 uIU/mL (0.34-5.60) 05/24/23 16:23 Urine Color YELLOW 05/24/23 16:06 Urine Clarity CLEAR (CLEAR) 05/24/23 16:06 Urine pH 7.0 PH (5.0-7.5) 05/24/23 16:06 Ur Specific [place] 1.010 (1.002-1.030) 05/24/23 16:06 Urine Protein NEGATIVE mg/dL (NEGATIVE) 05/24/23 16:06 Urine Glucose (UA) NEGATIVE mg/dL (NEGATIVE) 05/24/23 16:06 Urine Ketones NEGATIVE mg/dL (NEGATIVE) 05/24/23 16:06 Urine Occult Blood NEGATIVE (NEGATIVE) 05/24/23 16:06 Urine Nitrite NEGATIVE (NEGATIVE) 05/24/23 16:06 Urine Bilirubin NEGATIVE (NEGATIVE) 05/24/23 16:06 Urine Urobilinogen 0.2 (NORMAL) E.U./dL (NORMAL) 05/24/23 16:06 Ur Leukocyte Esterase SMALL (NEGATIVE) H 05/24/23 16:06 Urine RBC None Seen /HPF (0-5) 05/24/23 16:06 Urine WBC 6-10 /HPF (0-5) H 05/24/23 16:06 Ur Squamous Epith Cells FEW Squamous (<= Few) 05/24/23 16:06 Urine Bacteria Rare /HPF (None Seen) 05/24/23 16:06 Ur Microscopic Review INDICATED 05/24/23 16:06 Urine Culture Comments INDICATED 05/24/23 16:06 Nasal Screen MRSA (PCR) NEGATIVE (NEGATIVE) 05/24/23 19:00 Sepsis Event Note (H) - Evaluation Current Stage of Sepsis: Ruled out ABX Reporting Has patient been on IV antibiotics over the past 48 hours?: No
[2023-05-25] MEDS ORDERED: hydrALAZINE INJ 20 MG/ML VIAL IVP ONE (21:34)
[2023-05-26 07:56] LABS: CALCIUM, IONIZED 1.2 mmol/L (1.15-1.33); VBG PH 7.374 (7.31-7.41)
[2023-05-26 08:07] LABS: MAGNESIUM 1.9 mg/dL (1.7-2.3); PHOSPHORUS 3.5 mg/dL (3.7-7.2); POTASSIUM 3.9 mmol/L (3.5-4.5)
[2023-05-26] MEDS: lisinopriL 20 MG TABLET PO SCH (08:20)
[2023-05-26] MEDS: hydrALAZINE 10 MG TABLET PO SCH (08:20)
[2023-05-26] MEDS: SODIUM CHLORIDE FLUSH 0.9% 10 ML SYRINGE IVP SCH ×3 (08:21→23:38)
--- NOTE | 2023-05-26 14:13 | PROVIDER PROGRESS NOTE ---
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 She is currently under the care of a therapist. And the prescribing psychiatric nurse practitioner is involved also. Patient does not recall all of her medications at this time. (2) Hypertensive urgency Assessment/Plan: Patient was started on IV nicardipine drip due to the persistent elevated blood pressures up into the 200 range with headache. She responded to this overnight and nicardipine drip was DC'd and has now been placed on lisinopril 40 mg daily and will monitor. Her symptomatology associated with her hypertensive urgency have markedly improved with better blood pressure control. (3) Memory deficit Assessment/Plan: Per and patient these tend to be chronic. In fact patient describes herself as having mild dementia. - Current Meds Current Meds: Current Medications Generic Name Dose Route Start Last Admin Trade Name Freq PRN Reason Stop Dose Admin Hydralazine HCl 10 mg 05/26/23 09:00 05/26/23 08:20 Hydralazine 10 Mg Tablet PO 10 mg DAILY CAROLINE Administration Hydroxyzine Pamoate 50 mg 05/24/23 18:16 05/25/23 23:36 Hydroxyzine Pamoate 25 Mg Capsule PO 50 mg Q6HR PRN Administration Anxiety Lisinopril 40 mg 05/25/23 09:00 05/26/23 08:20 Lisinopril 20 Mg Tablet PO 40 mg DAILY CAROLINE Administration Sodium Chloride 10 ml 05/25/23 01:00 05/26/23 08:21 Sodium Chloride Flush 0.9% 10 Ml Syringe IVP 10 ml 0100,0900,1700 CAROLINE Administration Sodium Chloride 10 ml 05/24/23 17:57 05/25/23 22:49 Sodium Chloride Flush 0.9% 10 Ml Syringe IVP 20 ml PRN PRN Administration NEEDED PER PROVIDER ORDERS - Lab Result Fish Bone Diagrams: 05/25/23 04:39 05/26/23 07:45 - Additional Planning My Orders: My Active Orders 05/25/23 Dinner Cardiac Diet [DIET] Subjective - Subjective Patient Reports: Other (Patient is anxious upon my visit. is not at bedside and its not clear when asked her where he is that she knows the correct information or answer to this question.) Objective Vital Signs: Vital Signs - 24 hr 05/25/23 05/25/23 05/25/23 14:09 14:15 14:50 Temperature 36.4 C L Heart Rate [ Brachial] Heart Rate [ 75 Monitoring electrodes] Heart Rate [ 86 86 Sitting] Respiratory 18 Rate Blood Pressure Blood Pressure 140/90 H [Right Brachial artery] Blood Pressure 147/82 H 147/82 H [Sitting] O2 Saturation 98 05/25/23 05/25/23 05/25/23 16:46 18:15 21:00 Temperature 36.9 C 36.4 C L 36.6 C Heart Rate [ 88 Brachial] Heart Rate [ 76 77 Monitoring electrodes] Heart Rate [ Sitting] Respiratory 18 16 20 Rate Blood Pressure Blood Pressure 149/78 H 142/65 H 197/92 H [Right Brachial artery] Blood Pressure [Sitting] O2 Saturation 100 99 98 05/25/23 05/25/23 05/25/23 22:42 22:50 22:55 Temperature Heart Rate [ 82 85 Brachial] Heart Rate [ Monitoring electrodes] Heart Rate [ Sitting] Respiratory Rate Blood Pressure 191/99 H Blood Pressure 184/97 H 178/88 H [Right Brachial artery] Blood Pressure [Sitting] O2 Saturation 05/25/23 05/25/23 05/25/23 23:00 23:15 23:30 Temperature 36.8 C Heart Rate [ 90 92 85 Brachial] Heart Rate [ Monitoring electrodes] Heart Rate [ Sitting] Respiratory 18 Rate Blood Pressure Blood Pressure 149/72 H 108/65 115/62 [Right Brachial artery] Blood Pressure [Sitting] O2 Saturation 98 05/26/23 05/26/23 05/26/23 05:00 07:32 12:44 Temperature 36.4 C L 36.7 C 36.6 C Heart Rate [ 106 H 92 98 Brachial] Heart Rate [ Monitoring electrodes] Heart Rate [ Sitting] Respiratory 20 20 18 Rate Blood Pressure Blood Pressure 154/92 H 124/75 132/72 H [Right Brachial artery] Blood Pressure [Sitting] O2 Saturation 98 100 100 Oxygen O2 Source Room air I&O (Last 24 Hrs): Intake and Output Totals x24h 05/24/23 05/25/23 05/26/23 23:59 23:59 23:59 Intake Total 250 1500 450 Output Total 0 Balance 250 1500 450 General: Alert, Other (Anxious) HEENT: PERRLA, EOMI Neck: Supple Neuro: Alert, Other (Anxious and times appears confused but she does admit to ongoing dementia issues at home) Cardiovascular: Regular rate, Normal S1, Normal S2 Respiratory: No respiratory distress Abdomen: Soft Extremities: No edema Skin: No rashes - Results Results: Laboratory Results WBC 4.7 x10^3/uL (4.8-10.8) L 05/25/23 04:39 RBC 4.42 10^6/uL (4.20-5.40) 05/25/23 04:39 Hgb 13.2 g/dL (12.0-16.0) 05/25/23 04:39 Hct 41.0 % (37.0-47.0) 05/25/23 04:39 MCV 92.8 fL (81.0-99.0) 05/25/23 04:39 MCH 29.9 pg (27.0-31.0) 05/25/23 04:39 MCHC 32.2 g/dL (32.0-36.0) 05/25/23 04:39 RDW 12.7 % (12.0-15.0) 05/25/23 04:39 Plt Count 209 10^3/uL (130-450) 05/25/23 04:39 MPV 10.8 fL (7.9-10.8) 05/25/23 04:39 Neut # (Auto) 2.5 10^3/uL (1.5-6.6) 05/25/23 04:39 Lymph # (Auto) 1.5 10^3/uL (1.5-3.5) 05/25/23 04:39 [place] # (Auto) 0.4 10^3/uL (0.0-1.0) 05/25/23 04:39 Eos # (Auto) 0.1 10^3/uL (0.0-0.7) 05/25/23 04:39 Baso # (Auto) 0.0 10^3/uL (0.0-0.1) 05/25/23 04:39 Absolute Nucleated RBC 0.00 x10^3/uL 05/25/23 04:39 Nucleated RBC % 0.0 /100WBC 05/25/23 04:39 ESR 18 mm/Hr (0-30) 05/24/23 16:23 VBG pH 7.374 (7.31-7.41) 05/26/23 07:45 Ionized Calcium 1.20 mmol/L (1.15-1.33) 05/26/23 07:45 Sodium 141 mmol/L (135-145) 05/25/23 04:39 Potassium 3.9 mmol/L (3.5-4.5) 05/26/23 07:45 Chloride 108 mmol/L (101-111) 05/25/23 04:39 Carbon Dioxide 27 mmol/L (21-32) 05/25/23 04:39 Anion Gap 6.0 (6-13) 05/25/23 04:39 BUN 15 mg/dL (6-20) 05/25/23 04:39 Creatinine 0.7 mg/dL (0.6-1.3) 05/25/23 04:39 Estimated GFR (MDRD) 82 (>89) L 05/25/23 04:39 Glucose 95 mg/dL (74-104) 05/25/23 04:39 Calcium 9.4 mg/dL (8.5-10.3) 05/25/23 04:39 Phosphorus 3.5 mg/dL (3.7-7.2) L 05/26/23 07:45 Magnesium 1.9 mg/dL (1.7-2.3) 05/26/23 07:45 Total Bilirubin 0.4 mg/dL (0.2-1.0) 05/24/23 16:23 AST 21 IU/L (10-42) 05/24/23 16:23 ALT 15 IU/L (10-60) 05/24/23 16:23 Alkaline Phosphatase 66 IU/L (42-121) 05/24/23 16:23 Total Protein 7.9 g/dL (6.4-8.9) 05/24/23 16:23 Albumin 4.5 g/dL (3.2-5.5) 05/24/23 16:23 Globulin 3.4 g/dL (2.1-4.2) 05/24/23 16:23 Albumin/Globulin Ratio 1.3 (1.0-2.2) 05/24/23 16:23 Lipase 38 U/L (11-82) 05/24/23 16:23 TSH 4.18 uIU/mL (0.34-5.60) 05/24/23 16:23 Urine Color YELLOW 05/24/23 16:06 Urine Clarity CLEAR (CLEAR) 05/24/23 16:06 Urine pH 7.0 PH (5.0-7.5) 05/24/23 16:06 Ur Specific [place] 1.010 (1.002-1.030) 05/24/23 16:06 Urine Protein NEGATIVE mg/dL (NEGATIVE) 05/24/23 16:06 Urine Glucose (UA) NEGATIVE mg/dL (NEGATIVE) 05/24/23 16:06 Urine Ketones NEGATIVE mg/dL (NEGATIVE) 05/24/23 16:06 Urine Occult Blood NEGATIVE (NEGATIVE) 05/24/23 16:06 Urine Nitrite NEGATIVE (NEGATIVE) 05/24/23 16:06 Urine Bilirubin NEGATIVE (NEGATIVE) 05/24/23 16:06 Urine Urobilinogen 0.2 (NORMAL) E.U./dL (NORMAL) 05/24/23 16:06 Ur Leukocyte Esterase SMALL (NEGATIVE) H 05/24/23 16:06 Urine RBC None Seen /HPF (0-5) 05/24/23 16:06 Urine WBC 6-10 /HPF (0-5) H 05/24/23 16:06 Ur Squamous Epith Cells FEW Squamous (<= Few) 05/24/23 16:06 Urine Bacteria Rare /HPF (None Seen) 05/24/23 16:06 Ur Microscopic Review INDICATED 05/24/23 16:06 Urine Culture Comments INDICATED 05/24/23 16:06 Nasal Screen MRSA (PCR) NEGATIVE (NEGATIVE) 05/24/23 19:00 Sepsis Event Note (H) - Evaluation Current Stage of Sepsis: Ruled out ABX Reporting Has patient been on IV antibiotics over the past 48 hours?: No
[2023-05-26] MEDS: hydrOXYzine PAMOATE 25 MG CAPSULE PO PRN (21:06)
[2023-05-26] MEDS: hydrALAZINE 10 MG TABLET PO PRN (21:06)
[2023-05-27] MEDS: hydrALAZINE 10 MG TABLET PO PRN (06:13)
[2023-05-27 08:16] VITALS: BP 117/79
[2023-05-27] MEDS: lisinopriL 20 MG TABLET PO SCH ×2 (08:56→09:26)
[2023-05-27] MEDS: hydrALAZINE 10 MG TABLET PO SCH ×2 (08:56→09:26)
[2023-05-27] MEDS: SODIUM CHLORIDE FLUSH 0.9% 10 ML SYRINGE IVP SCH (09:26)
[2023-05-27] MEDS: hydrOXYzine PAMOATE 25 MG CAPSULE PO PRN (09:30)
--- NOTE | 2023-05-27 11:04 | Discharge Plan ---
Discharge Plan Problem Reviewed?: Yes Disposition: Home, Self Care Condition: Stable Prescriptions: hydrOXYzine PAMOATE [Vistaril] 50 mg PO Q6HR PRN #20 cap PRN Reason: Anxiety hydrALAZINE [Apresoline] 10 mg PO DAILY #30 tab lisinopriL [Zestril] 40 mg PO DAILY #30 tab Diet: Cardiac Activity Restrictions: Activity as Tolerated Weight Bearing: Full Weight Plan of Treatment: You presented with significantly elevated blood pressure and we have changed your blood pressure pills please get these filled at the pharmacy and continue to take them and monitor blood pressure at home. Recommend follow-up with [facility] in 3 to 5 days sooner if problems. No Smoking: If you smoke, Please STOP! Call for help.
--- NOTE | 2023-05-27 11:08 | DISCHARGE SUMMARY ---
Discharge Summary Admit Date: 05/24/23 Discharge Date: 05/27/23 Code Status: Attempt Resuscitation Condition at Discharge: Stable Discharge Disposition: 01 Home, Self Care - DIAGNOSES Admission Diagnoses: Hypertensive encephalopathy Hypertensive urgency PTSD Anxiety Headache Discharge Diagnoses with Status of Each Condition: Hypertensive urgency-resolved Hypertensive encephalopathy-resolved Poorly controlled hypertension-have added p.o. hydralazine and increase lisinopril to 40 mg daily patient is to follow-up with her provider 3 to 5 days sooner if problems Headache-resolved secondary to hypertensive urgency PTSD and anxiety-patient is followed by primary care provider and psychiatric nurse practitioner regarding these issues and is to follow-up with them - HPI History of Present Illness: Patient is a 73-year-old female with a PMH of hypertension on lisinopril, generalized anxiety, PTSD from the loss of her son in 2018 currently undergoing therapy and psychiatric care, who presents to the ED with confusion and headache. She has been having similar symptoms over the last couple of weeks with most notable symptoms in the last few days.She was in the ED on 05/16/2023 for the same symptoms. At that time her blood pressure was also elevated. She was discharged home after treatment. She denies any focal neurological deficits such as extremity weakness, facial droop, blurry vision, with the exception of the headache and the generalized confusion with occasional difficulty speaking that she says has actually been going on for some time since her son in 2018. She reports that it gets worse with stress and her who is at the bedside also supports this stating that when she is anxious, around other people, or in stressful situations her speech gets worse but otherwise recovers and normalizes. In the last few days this pattern has continued and has not developed any new symptoms such as more classic expressive aphasia as seen in stroke symptoms. Today in the ED her work-up was generally unremarkable.Head CT showed no acute abnormalities. Lab work was unrevealing. However her blood pressure has been persistently elevated with systolic over 200 and diastolic in the 90-100 range despite IV labetalol. Given the persistence of her symptoms, hospital admission was requested. Patient was started on nicardipine drip in the ED. She will be admitted to the ICU. 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 She is currently under the care of a therapist. And the prescribing psychiatric nurse practitioner is involved also. Patient is to follow-up with her Psychiatric provider for these issues. (2) Hypertensive urgency Assessment/Plan: Patient was started on IV nicardipine drip due to the persistent elevated blood pressures up into the 200 range with headache. She responded to this overnight and nicardipine drip was DC'd and has now been placed on lisinopril 40 mg daily and will monitor. Her symptomatology associated with her hypertensive urgency have markedly improved with better blood pressure control.Hydralazine 10 mg p.o. daily was also added to her blood pressure regimen. (3) Memory deficit Assessment/Plan: Per and patient these tend to be chronic. In fact patient describes herself as having mild dementia.This is being followed by her primary care provider and psychiatric nurse practitioner. Memory deficits may be enhanced because of her issue of PTSD and anxiety. Treatment - ALLERGIES Allergies/Adverse Reactions: Allergies Allergy/AdvReac Type Severity Reaction Status Date / Time Sulfa (Sulfonamide Allergy Edema Verified 05/16/23 15:18 Antibiotics) - MEDICATIONS Home Medications: Ambulatory Orders Medication Instructions Recorded Confirmed Cyanocobalamin [Vitamin B-12] 500 mcg PO DAILY 05/25/23 05/25/23 D-Mannose [Azo D-Mannose] 1 cap PO DAILY 05/25/23 05/25/23 Estrogen, Compounded Cream 1 applic VG UD PRN 05/25/23 05/25/23 Gabapentin [Neurontin] 300 mg PO BID 05/25/23 05/25/23 Levothyroxine Sodium 50 mcg PO QDAC 05/25/23 05/25/23 clonazePAM [KlonoPIN] 0.25 mg PO DAILY PRN 05/25/23 05/25/23 hydrALAZINE [Apresoline] 10 mg PO DAILY #30 tab 05/27/23 hydrOXYzine PAMOATE [Vistaril] 50 mg PO Q6HR PRN #20 cap 05/27/23 lisinopriL [Zestril] 40 mg PO DAILY #30 tab 05/27/23 - PHYSICAL EXAM AT DISCHARGE General Appearance: positive: No acute distress, Alert Eyes Bilateral: positive: Normal inspection Neck: positive: Nml inspection Respiratory: positive: Breath sounds nml Cardiovascular: positive: Regular rate & rhythm, No murmur Abdomen: positive: Non-tender Skin: positive: No rash Neurologic/Psychiatric: positive: Oriented x3 - LABS Result Diagrams: 05/25/23 04:39 05/26/23 07:45 - SEPSIS Current Stage of Sepsis: Ruled out
--- NOTE | 2023-05-27 11:23 | Discharge Plan ---
Discharge Plan Problem Reviewed?: Yes Disposition: Home, Self Care Condition: Stable Prescriptions: hydrOXYzine PAMOATE [Vistaril] 50 mg PO Q6HR PRN #20 cap PRN Reason: Anxiety hydrALAZINE [Apresoline] 10 mg PO DAILY #30 tab lisinopriL [Zestril] 40 mg PO DAILY #30 tab Activity Restrictions: Activity as Tolerated Weight Bearing: Full Weight Instruction Topics: ED Confusion, ED HTN Established Plan of Treatment: You presented with significantly elevated blood pressure and we have changed your blood pressure pills please get these filled at the pharmacy and continue to take them and monitor blood pressure at home. Recommend follow-up with [facility] in 3 to 5 days sooner if problems. No Smoking: If you smoke, Please STOP! Call for help.
[2023-05-29] MEDS ORDERED: IBUPROFEN 600 MG TABLET PO PRN (18:00)
== END 2023-05-27 11:46 | disposition home or self-care (01) | DRG 78 ==
LOC: EDUNIT# → ED 15:28 → ICU 17:57 → MS2 05-25 12:59
PROVIDERS: ADMIT Family Medicine Sports Medicine; ATTEND Specialist
DX: R41.0 Disorientation, unspecified (principal); R51.9 Headache, unspecified; I67.4 Hypertensive encephalopathy; I49.3 Ventricular premature depolarization; R47.01 Aphasia; I10 Essential (primary) hypertension; I16.0 Hypertensive urgency; F41.0 Panic disorder [episodic paroxysmal anxiety]; F41.1 Generalized anxiety disorder; F43.10 Post-traumatic stress disorder, unspecified; R41.3 Other amnesia; Z63.4 Disappearance and death of family member; Z79.899 Other long term (current) drug therapy; Z81.8 Family history of other mental and behavioral disorders
CPT/HCPCS: 36415; 70450; 80048; 80053; 81001; 82330; 83690; 83735; 84100; 84132; 84443; 85025; 85651; 87086; 87150; 93005; 96374; 96375; 97161; 97166; 97530; 99285; A9270; 81003

== ENCOUNTER 2023-06-18 08:00 | Outpatient (CLI) | payer MEDICARE, OTHER | END 2023-06-18 23:59 | disposition home or self-care (01) | LOC: LAB.S 08:00 | PROVIDERS: ATTEND Physician Assistant Medical | DX: N30.90 Cystitis, unspecified without hematuria (principal) | CPT/HCPCS: 87086 ==

== ENCOUNTER 2023-06-18 08:00 | Outpatient (CLI) | payer MEDICARE, OTHER | END 2023-06-18 23:59 | disposition home or self-care (01) | LOC: LAB.F 08:00 | PROVIDERS: ATTEND Nurse Practitioner Acute Care | DX: Z53.9 Procedure and treatment not carried out, unspecified reason (principal) ==

== ENCOUNTER 2023-08-01 13:21 | Outpatient (CLI) | payer MEDICARE, OTHER ==
--- NOTE | 2023-08-01 18:47 | Ultrasound Report ---
PROCEDURE: Pelvic Complete INDICATIONS: DYSURIA TECHNIQUE: Transabdominal ultrasound of the pelvis was obtained. COMPARISON: None. FINDINGS: Uterine size: Uterus measures 3.8 x 2.1 x 2.2 cm, and is anteverted. Myometrium: The myometrium is heterogenous. Endometrium: The endometrium measures 3 mm in combined thickness. Right ovary: Nonvisualized Left ovary: Nonvisualized Other: No pathologic free abdominal or pelvic fluid. IMPRESSION: Nonvisualized ovaries. Unremarkable uterus. Reviewed by: Willian Yo MD on 08/01/2023 5:45 PM [email or web address] Approved by: Willian Yo MD on 08/01/2023 5:45 PM AKDT Station ID: [id number]
--- NOTE | 2023-08-01 21:38 | DEXA Report ---
PROCEDURE: Dexa Spine and/or Hip INDICATIONS: POST MENOPAUSAL TECHNIQUE: Dual energy x-ray absorptiometry (DXA) was performed on a [employer] System. Regions measur ed are the AP Spine, femoral neck, and if needed forearm. COMPARISON: None FINDINGS: Lumbar Spine: Bone Mineral Density 0.989 g/cm/cm,T score -1.7. Osteopenia. Left Femoral Neck: Bone Mineral Density 0.731 g/cm/cm, T score -2.2. Osteopenia. Left Hip: Bone Mineral Density 0.899 g/cm/cm,T score -0.9. Normal. (T score greater or equal to -1.0: NORMAL) (T score from -1.1 to -2.4: OSTEOPENIA) (T score less than or equal to -2.5 to: OSTEOPOROSIS) Impression: By WHO criteria, this patient has low bone density (osteopenia). Patients with diagnosis of osteoporosis or osteopenia should have regular bone mineral density assess ment. For those eligible for Medicare, routine testing is allowed once every 2 years. Testing frequ ency can be increased for patients who have rapidly progressing disease or for those who are receivin g medical therapy to restore bone mass. Reviewed by: Silvestre Arizmendi MD on 08/01/2023 9:36 PM PDT Approved by: Silvestre Arizmendi MD on 08/01/2023 9:36 PM PDT Station ID: [id number]
== END 2023-08-01 13:22 | disposition home or self-care (01) ==
LOC: DI 13:21
PROVIDERS: ATTEND Nurse Practitioner Acute Care
DX: Z78.0 Asymptomatic menopausal state (principal); R30.0 Dysuria; R31.9 Hematuria, unspecified; M85.89 Other specified disorders of bone density and structure, multiple sites

== ENCOUNTER 2023-08-01 13:22 | Outpatient (CLI) | payer MEDICARE, OTHER ==
--- NOTE | 2023-08-03 08:23 | Mammography Report ---
BILATERAL DIGITAL SCREENING MAMMOGRAM 3D/2D: 08/01/2023 CLINICAL: Routine screening. Comparison is made to exams dated: 04/11/2022 mammogram, 06/29/2020 mammogram, 08/29/2018 mammogram, mammogram, 02/01/2017 mammogram, and 08/04/2016 mammogram - [facility]. There are scattered areas of fibroglandular density in both breasts (category b / 25%-50% glandular t issue). There are benign calcifications in the left breast. No significant masses, calcifications, or other findings are seen in either breast. There has been no significant interval change. IMPRESSION: BENIGN There is no mammographic evidence of malignancy. A 1 year screening mammogram is recommended. Based on the Tyrer Cuzick model (a risk assessment model) the patients lifetime risk is 3.2% and her 10 year risk is 3.2%. According to the ACR, ACS, and NCCN guidelines, an annual breast MRI exam jesus g with mammogram is recommended if the patients lifetime risk is 20% or greater. This exam was interpreted at Station ID: [id number]. NOTE: For mammograms, a report in lay terms will be sent to the patient. Approximately 15% of breast malignancies will not be visualized mammographically. In the management of a palpable breast mass, a negative mammogram must not discourage biopsy of a clinically suspicious lesion. Electronically Signed By: Georgie garcia/ana:08/02/2023 17:14:19 letter sent: No_Letter ACR BI-RADS Category 2: Benign Finding(s) 3342F PARENCHYMAL PATTERN: (A) - The breast(s) demonstrate(s) scattered fibroglandular densities. BI-RADS CATEGORY: (2) - 2 Mammogram [id number] 1 year screening LATERALITY: (B)
== END 2023-08-01 13:23 | disposition home or self-care (01) ==
LOC: DI 13:22
PROVIDERS: ATTEND Nurse Practitioner Acute Care
DX: Z12.31 Encounter for screening mammogram for malignant neoplasm of breast (principal)

== ENCOUNTER 2023-08-12 11:12 | Outpatient (CLI) | payer MEDICARE, OTHER ==
--- NOTE | 2023-08-12 16:43 | Ultrasound Report ---
PROCEDURE: Retroperitoneal INDICATIONS: HEMATURIA TECHNIQUE: Real-time scanning was performed of the retroperitoneal organs, with image documentation. COMPARISON: None. FINDINGS: Kidneys: Kidneys are normal in size. Right kidney measures 9.1 cm long; left kidney measures 0.2 cm long. Right renal cortical thickness is 1.1 cm (remeasured); left renal cortical thickness is 0.9 c m. No solid masses, hydronephrosis, or nephrolithiasis. Left upper pole anechoic simple cyst measur ing 2.2 x 1.6 x 2.7 cm. Bilateral renal cortices demonstrate normal echogenicity. Bilateral medullary pyramids demonstrate mildly increased echogenic. Bladder: Pre-void bladder volume is 96.1 mL. Post-void residual is 68.9 mL. Pre-void images demons trate no intraluminal masses or stones. On pre-void images, bilateral ureteral jets are noted with c olor Doppler interrogation. (Of note, ureteral jets may not be detectable in up to 25% of cases due to insufficient differences in specific gravity between ureteral and bladder urine). Miscellaneous: No free abdominal fluid. IMPRESSION: 1. No hydronephrosis or nephrolithiasis bilaterally. 2. Bilateral medullary pyramids demonstrate mildly increased echogenic which is nonspecific and may b e seen in medullary sponge kidney. Correlate with risk factors. 3. No sonographic evidence of intraluminal masses or stones in the bladder. Reviewed by: Andre Darling MD on 08/12/2023 4:41 PM PDT Approved by: Andre Darling MD on 08/12/2023 4:41 PM PDT Station ID: [id number]
== END 2023-08-12 11:13 | disposition home or self-care (01) ==
LOC: DI 11:12
PROVIDERS: ATTEND Nurse Practitioner Acute Care
DX: R30.0 Dysuria (principal); R31.9 Hematuria, unspecified

== ENCOUNTER 2023-08-17 17:10 | Outpatient (CLI) | payer MEDICARE, OTHER | END 2023-08-17 17:11 | disposition critical access hospital (66) | LOC: EMS 17:10 | DX: Z04.6 Encounter for general psychiatric examination, requested by authority (principal); R46.89 Other symptoms and signs involving appearance and behavior; R45.1 Restlessness and agitation; Z78.1 Physical restraint status | CPT/HCPCS: A0425; A0429 ==

== ENCOUNTER 2023-08-17 17:41 | Emergency (ER) | payer MEDICARE, OTHER ==
--- NOTE | 2023-08-17 17:49 | ED Physician Documentation ---
History of Present Illness - Stated complaint Stated Complaint: MARYJANE/MHE - History obtained from History obtained from: Patient, EMS - Additonal information Additional information: 73-year-old woman with history of hypertension presents by ambulance. It sounds like lately she has been becoming demented and having some agitation and. Today she was beating up her dog. is not available on initial evaluation, but reported he is coming to the hospital. Reportedly they have been trying to place her. She is calm and cooperative on my evaluation. PD PAST MEDICAL HISTORY - Past Medical History Cardiovascular: Hypertension Endocrine/Autoimmune: HyPOthyroidism Psych: Anxiety, Post traumatic stress disorder - Present Medications Home Medications: Ambulatory Orders Medication Instructions Recorded Confirmed Cyanocobalamin [Vitamin B-12] 500 mcg PO DAILY 05/25/23 05/25/23 D-Mannose [Azo D-Mannose] 1 cap PO DAILY 05/25/23 05/25/23 Estrogen, Compounded Cream 1 applic VG UD PRN 05/25/23 05/25/23 Gabapentin [Neurontin] 300 mg PO BID 05/25/23 05/25/23 Levothyroxine Sodium 50 mcg PO QDAC 05/25/23 05/25/23 clonazePAM [KlonoPIN] 0.25 mg PO DAILY PRN 05/25/23 05/25/23 hydrALAZINE [Apresoline] 10 mg PO DAILY #30 tab 05/27/23 hydrOXYzine PAMOATE [Vistaril] 50 mg PO Q6HR PRN #20 cap 05/27/23 lisinopriL [Zestril] 40 mg PO DAILY #30 tab 05/27/23 - Allergies Allergies/Adverse Reactions: Allergies Allergy/AdvReac Type Severity Reaction Status Date / Time Sulfa (Sulfonamide Allergy Edema Verified 05/16/23 15:18 Antibiotics) - Social History Does the pt smoke?: No Smoking Status: Never smoker Does the pt drink ETOH?: No Does the pt have substance abuse?: No - POLST Patient has POLST: No POLST Status: Full Code PD ED PE NORMAL - Vitals Vital signs reviewed: Yes - General General: No acute distress, Other (She is alert and oriented to person and place but not time or events. She does become tearful easily.) - HEENT HEENT: PERRL, EOMI - Cardiac Cardiac: RRR, No murmur - Respiratory Respiratory: No respiratory distress, Clear bilaterally - Abdomen Abdomen: Soft, Non tender - Extremities Extremities: No edema, No calf tenderness / cord - Neuro Eye Opening: Spontaneous Motor: Obeys Commands Verbal: Confused GCS Score: 14 Results - Vitals Vitals: Vital Signs - 24 hr 08/17/23 08/17/23 17:51 20:08 Temperature 36.7 C 36.3 C L Heart Rate 106 H 68 Respiratory 20 18 Rate Blood Pressure 187/107 H 150/66 H O2 Saturation 100 99 Oxygen O2 Source Room air - EKG (time done) 1853 EKG releavant findings:: EKG personally interpreted by author of this note. Relevant findings are: Rate: Rate (enter#) (90) Rhythm: NSR [place]: Normal Intervals: Prolonged DE QRS: LVH Ischemia: Normal ST segments - Labs Labs: Laboratory Tests 08/17/23 08/17/23 08/17/23 18:01 18:01 19:31 WBC 6.3 RBC 4.40 Hgb 12.9 Hct 40.9 MCV 93.0 MCH 29.3 MCHC 31.5 L RDW 12.9 Plt Count 188 MPV 11.1 H Neut # (Auto) 3.5 Lymph # (Auto) 2.1 Dickey # (Auto) 0.6 Eos # (Auto) 0.1 Baso # (Auto) 0.0 Absolute Nucleated RBC 0.00 Nucleated RBC % 0.0 Sodium 140 Potassium 4.2 Chloride 105 Carbon Dioxide 26 Anion Gap 9.0 BUN 21 H Creatinine 1.1 Estimated GFR (MDRD) 48 L Glucose 96 Calcium 10.1 Magnesium 2.0 Total Bilirubin 0.6 AST 26 ALT 17 Alkaline Phosphatase 57 Total Creatine Kinase 250 H Total Protein 7.5 Albumin 4.7 Globulin 2.8 Albumin/Globulin Ratio 1.7 Lipase 27 Vitamin B12 1420 H Folate 21.9 TSH 8.56 H Urine Color YELLOW Urine Clarity CLOUDY Urine pH 6.0 Ur Specific [place] 1.020 Urine Protein NEGATIVE Urine Glucose (UA) NEGATIVE Urine Ketones NEGATIVE Urine Occult Blood NEGATIVE Urine Nitrite NEGATIVE Urine Bilirubin NEGATIVE Urine Urobilinogen 0.2 (NORMAL) Ur Leukocyte Esterase MODERATE H Urine RBC 0-5 Urine WBC 4-5 Ur Squamous Epith Cells FEW Squamous Urine Crystals >50 Uric Acid Urine Bacteria Rare Urine Mucus Moderate Strands Ur Microscopic Review INDICATED Urine Culture Comments INDICATED Salicylates < 1.5 Urine Opiates Screen NEGATIVE Ur Oxycodone Screen NEGATIVE Urine Methadone Screen NEGATIVE Ur Propoxyphene Screen NEGATIVE Acetaminophen < 0.1 Ur Barbiturates Screen NEGATIVE Ur Tricyclics Screen NEGATIVE Ur Phencyclidine Scrn NEGATIVE Ur Amphetamine Screen NEGATIVE U Methamphetamines Scrn NEGATIVE U Benzodiazepines Scrn NEGATIVE Urine Cocaine Screen NEGATIVE U Cannabinoids Screen NEGATIVE Ethyl Alcohol < 10.0 SARS-CoV-2 (PCR) 08/17/23 19:38 WBC RBC Hgb Hct MCV MCH MCHC RDW Plt Count MPV Neut # (Auto) Lymph # (Auto) [place]key # (Auto) Eos # (Auto) Baso # (Auto) Absolute Nucleated RBC Nucleated RBC % Sodium Potassium Chloride Carbon Dioxide Anion Gap BUN Creatinine Estimated GFR (MDRD) Glucose Calcium Magnesium Total Bilirubin AST ALT Alkaline Phosphatase Total Creatine Kinase Total Protein Albumin Globulin Albumin/Globulin Ratio Lipase Vitamin B12 Folate TSH Urine Color Urine Clarity Urine pH Ur Specific [place] Urine Protein Urine Glucose (UA) Urine Ketones Urine Occult Blood Urine Nitrite Urine Bilirubin Urine Urobilinogen Ur Leukocyte Esterase Urine RBC Urine WBC Ur Squamous Epith Cells Urine Crystals Urine Bacteria Urine Mucus Ur Microscopic Review Urine Culture Comments Salicylates Urine Opiates Screen Ur Oxycodone Screen Urine Methadone Screen Ur Propoxyphene Screen Acetaminophen Ur Barbiturates Screen Ur Tricyclics Screen Ur Phencyclidine Scrn Ur Amphetamine Screen U Methamphetamines Scrn U Benzodiazepines Scrn Urine Cocaine Screen U Cannabinoids Screen Ethyl Alcohol SARS-CoV-2 (PCR) NOT DETECTED PD Medical Decision Making - ED course ED course: It was initially reported to me that she was not on any psychiatric medications from EMS. That said it looks like as of late a psychiatric nurse practitioner [place], Lauren Gillespie has been prescribing olanzapine 2.5 mg at night and clonazepam 0.5 mg/day. We will ask for telepsychiatric consultation. At this time she seems calm and cooperative and not needing any specific medications or restraints. arrived at bedside and I discussed the process of telepsychiatric consultation with him. I let him know that after that we would probably have to make a decision on disposition, and set expectations that given the tonight is Sunday night, if she were not able to go home with him tonight, her emergency department stay would be prolonged by the upcoming weekend and felt it would be less likely that she would be able to be placed in a memory care unit over the weekend. I did ask him to stay at the bedside for when the telepsychiatric consultation got online but he had stepped away during that process so did not speak with the psychiatrist. Seen by telepsych who recommends increasing her Zyprexa to 5 mg p.o. nightly. Family not feeling safe taking her home. They note that they did put a deposit down already on a dementia care unit so we will have social work see in the morning to help hopefully transfer. Departure - Departure Clinical Impression: Dementia with behavioral disturbance Condition: Stable Instructions: ED Dementia Caregiver Support
[2023-08-17] MEDS ORDERED: lisinopriL 20 MG TABLET PO STA (17:52)
[2023-08-17 18:06] LABS: BASOPHILS % (AUTO) 0.3 %; EOSINOPHILS # (AUTO) 0.1 10^3/uL (0.0-0.7); EOSINOPHILS % (AUTO) 0.9 %; HCT - HEMATOCRIT 40.9 % (37.0-47.0); HGB - HEMOGLOBIN 12.9 g/dL (12.0-16.0); LYMPHOCYTES # (AUTO) 2.1 10^3/uL (1.5-3.5); LYMPHOCYTES % (AUTO) 33.4 %; MEAN CORPUSCULAR HEMOGLOBIN 29.3 pg (27.0-31.0); MEAN CORPUSCULAR HGB CONC 31.5 g/dL (32.0-36.0); MEAN PLATELET VOLUME 11.1 fL (7.9-10.8); MONOCYTES # (AUTO) 0.6 10^3/uL (0.0-1.0); MONOCYTES % (AUTO) 9.5 %; NEUTROPHILS # (AUTO) 3.5 10^3/uL (1.5-6.6); NEUTROPHILS % (AUTO) 55.6 %; PLT - PLATELET COUNT 188 10^3/uL (130-450); RED CELL DISTRIBUTION WIDTH 12.9 % (12.0-15.0); WHITE BLOOD COUNT 6.3 x10^3/uL (4.8-10.8)
[2023-08-17 18:23] LABS: ALBUMIN 4.7 g/dL (3.2-5.5); ALBUMIN/GLOBULIN RATIO 1.7 (1.0-2.2); ALKALINE PHOSPHATASE 57 IU/L (42-121); ALT ALANINE AMINOTRANSFERASE 17 IU/L (10-60); AST ASPARTATE AMINOTRANSFERASE 26 IU/L (10-42); BILIRUBIN,TOTAL 0.6 mg/dL (0.2-1.0); BUN - BLOOD UREA NITROGEN 21 mg/dL (6-20); CALCIUM 10.1 mg/dL (8.5-10.3); CARBON DIOXIDE - CO2 26 mmol/L (21-32); CHLORIDE 105 mmol/L (101-111); CK- CREATINE KINASE 250 IU/L (30-223); CREATININE 1.1 mg/dL (0.6-1.3); ETOH - ETHANOL < 10.0 mg/dL; GFR - MDRD 48 (>89); GLUCOSE 96 mg/dL (74-104); LIPASE 27 U/L (11-82); POTASSIUM 4.2 mmol/L (3.5-4.5); SODIUM 140 mmol/L (135-145); TOTAL PROTEIN 7.5 g/dL (6.4-8.9)
[2023-08-17 18:25] LABS: ACETAMINOPHEN < 0.1 ug/mL; SALICYLATE < 1.5 mg/dL
[2023-08-17 18:37] LABS: THYROID STIMULATING HORMONE 8.56 uIU/mL (0.34-5.60)
[2023-08-17 19:41] LABS: MUDS CUTOFF CONCENTRATIONS CUTOFF CONC BELOW:
--- NOTE | 2023-08-17 19:42 | CT Report ---
PROCEDURE: HEAD WO INDICATIONS: combative TECHNIQUE: Noncontrast 4.5 mm thick angled axial sections acquired from the foramen magnum to the vertex. For r adiation dose reduction, the following was used: automated exposure control, adjustment of mA and/or kV according to patient size. COMPARISON: 05/24/2023 FINDINGS: Image quality: Excellent. CSF spaces: Basal cisterns are patent. No extra-axial fluid collections. The ventricles are symmet mila in size and shape. Brain: No intracranial bleeds or masses. There is cerebral volume loss for age, with resultant vent ricular and sulcal prominence. There are periventricular and deep white matter chronic small vessel ischemic changes. There is intracranial internal carotid artery atherosclerosis. Skull and face: Calvarium and visualized facial bones appear intact, without suspicious lesions. Sinuses: Visualized sinuses and mastoids are clear. IMPRESSION: No acute intracranial abnormalities. No significant changes from previous study. Reviewed by: Jeffrey Nova MD on 08/17/2023 7:41 PM PDT Approved by: Jeffrey Nova MD on 08/17/2023 7:41 PM PDT Station ID: [id number]
[2023-08-17 19:45] LABS: BILIRUBIN,URINE NEGATIVE (NEGATIVE); GLUCOSE, URINE (UA) NEGATIVE (NEGATIVE); KETONES,URINE (UA) NEGATIVE (NEGATIVE); LEUKOCYTE ESTERASE, URINE MODERATE (NEGATIVE); NITRITE,URINE NEGATIVE (NEGATIVE); OCCULT BLOOD,URINE NEGATIVE (NEGATIVE); PROTEIN,URINE NEGATIVE (NEGATIVE); UROBILINOGEN,URINE 0.2 (NORMAL) E.U./dL (NORMAL)
[2023-08-17 19:47] LABS: CLARITY,URINE CLOUDY (CLEAR)
[2023-08-17 19:52] LABS: BACTERIA,URINE Rare /HPF (None Seen); CRYSTALS,URINE >50 Uric Acid /LPF; MUCUS,URINE Moderate Strands; RBC,URINE 0-5 /HPF (0-5); SQUAMOUS EPITHELIAL CELL,UR FEW Squamous (<= Few)
[2023-08-17 20:00] LABS: AMPHETAMINE SCREEN,URINE NEGATIVE (NEGATIVE); BARBITURATE SCREEN,UR NEGATIVE (NEGATIVE); BENZODIAZEPINES SCREEN, URINE NEGATIVE (NEGATIVE); COCAINE SCREEN URINE NEGATIVE (NEGATIVE); METHADONE SCREEN, URINE NEGATIVE (NEGATIVE); METHAMPHETAMINES SCREEN, URINE NEGATIVE (NEGATIVE); OPIATE SCREEN, URINE NEGATIVE (NEGATIVE); OXYCODONE SCREEN, URINE NEGATIVE (NEGATIVE); PROPOXYPHENE SCREEN, URINE NEGATIVE (NEGATIVE); THC CANNABINOID SCREEN, URINE NEGATIVE (NEGATIVE); TRICYCLIC ANTIDEPRESSANT,URINE NEGATIVE (NEGATIVE)
--- NOTE | 2023-08-17 20:51 | TELEPSYCH PHYS NOTE ---
[facility] Telepsych Consult Consult Date: 08/17/23 Name of Referring Provider:: ED provider Reason for Consult: agitation/confusion - Assessment Language: Serbian Reliability Technicians Required: No Cultural, Holiness or Spiritual Preferences: ANUPAMA Chief Complaint: "can you get my clothes" History of Present Illness: 73 yo female presenting via EMS secondary to confusion, agitation, aggressive behaviors. Patient has a hx of anxiety and PTSD per chart review. It was reported that the patient has been experiencing increasing confusion and agitation. Patient reportedly was violent and aggressive with the dog today prompting the ED encounter. Patient presents as floridly psychotic during psychiatric evaluation and is a poor historian. Becomes very flustered. Oriented to person only. Unable to complete psychiatric evaluation. Disposition recommendation from collateral information. Suicide Ideation - Homicide Ideation - Self Harm: ANUPAMA - no reports of suicidal or homicidal ideation. Patient was aggressive with the dog today prompting ED visit per report Psychiatric History - Treatment History: Hx of PTSD and anxiety per chart review Community Resources Accessed: ANUPAMA Family Psych History/ History of suicide: ANUPAMA - Medication & Allergies Home Medications: Ambulatory Orders Medication Instructions Recorded Confirmed Cyanocobalamin [Vitamin B-12] 500 mcg PO DAILY 05/25/23 05/25/23 D-Mannose [Azo D-Mannose] 1 cap PO DAILY 05/25/23 05/25/23 Estrogen, Compounded Cream 1 applic VG UD PRN 05/25/23 05/25/23 Gabapentin [Neurontin] 300 mg PO BID 05/25/23 05/25/23 Levothyroxine Sodium 50 mcg PO QDAC 05/25/23 05/25/23 clonazePAM [KlonoPIN] 0.25 mg PO DAILY PRN 05/25/23 05/25/23 hydrALAZINE [Apresoline] 10 mg PO DAILY #30 tab 05/27/23 hydrOXYzine PAMOATE [Vistaril] 50 mg PO Q6HR PRN #20 cap 05/27/23 lisinopriL [Zestril] 40 mg PO DAILY #30 tab 05/27/23 Allergies/Adverse Reactions: Allergies Allergy/AdvReac Type Severity Reaction Status Date / Time Sulfa (Sulfonamide Allergy Edema Verified 05/16/23 15:18 Antibiotics) - Drug & Alcohol History Does patient have Drug/ETOH history or addictive behavior?: No - Trauma History of trauma, abuse, neglect, or exploitation (Notes): ANUPAMA - Personal Information Does the patient have a history or present tendencies for violence?: Present History or present tendencies for violence (Notes): reported that she was violent with dog prompting ED encounter Services History: ANUPAMA Legal Charges or Investigations (Notes): ANUPAMA Environment & Living Situation - Social, Peer-Group (Note): At home Environment & Living Situation - Social, Peer-Group (Notes): with Marital Status - Family Circumstances: Stressors - Financial Concerns: ANUPAMA Education: ANUPAMA Occupation: retired Collateral - Interdisciplinary Input: Review of ED documentation - Medical History Psychiatric: reports: Anxiety, Post traumatic stress disorder Cardiovascular: reports: Hypertension - Family & Social History Family History: Mother: Mental Illness (Anxiety) Living Situation: With spouse/s.o. Childhood History: ANUPAMA - Mental Status Exam Appearance and Attire: Appears stated age. Dressed in hospital gowns. Attitude and Behavior: Anxious. Becomes very flustered. Appears fearful. Speech: Aphasia Affect and Mood: Mood is anxious. Affect is congruent. Association and Thought Process: Thought blocking Thought Content: No reported suicidal or homicidal ideation Perception: Appeared to be experiencing hallucinatory activity. Became fixated on someone in a pink bathrobe with white hair that was reportedly behind the computer. No staff was in the room for the assessment to verify. Sensorium, memory and orientation: Alert. Oriented to person only Intellectual - Cognitive functioning: ANUPAMA Insight and Judgement: Insight is limited. Judgment is impaired Emotional and Behavioral Functioning: per report, patient is not functioning at baseline Ability to Self-Care: ANUPAMA - Personal Goals Short-term Goals: patient is requesting that we get her clothes out of the closet Long-term Goals: ANUPAMA - Risk/Protective Factors Risk Factors: N/A Protective Factors / Internal: N/A Protective Factors / External: Supportive social network of family or friends - Plan Impression/Risk Assessment: 73 yo female presenting via EMS secondary to confusion, agitation, aggressive behaviors. Patient has a hx of anxiety and PTSD per chart review. It was reported that the patient has been experiencing increasing confusion and agitation. Patient reportedly was violent and aggressive with the dog today prompting the ED encounter. Patient presents as floridly psychotic during psychiatric evaluation and is a poor historian. Becomes very flustered. Oriented to person only. Unable to complete psychiatric evaluation. Disposition recommendation from collateral information. In light of sx presentation, IP hospitalization for safety and stabilization is warranted. Treatment - Therapy Recommendations: supportive. Patient will most likely require a higher level of care than can provide s/p discharge. Pharmacological Recommendations: Verify home medications and continue. It was reported that the patient was taking Zyprexa 2.5 mg po q HS. Patient may benefit from increased dose - Zyprexa 5 mg po q HS. - Time Spent & Provider Location Telepsych consultation conducted via videoconferencing: Yes List names and roles of persons who participated in consult: Radha Nevarez [facility]. patient Telepsych Provider Location: remote Time Spent (Minutes): 35
[2023-08-17] MEDS ORDERED: ACETAMINOPHEN 500 MG TABLET PO PRN (21:38)
[2023-08-17] MEDS: OLANZapine ODT 5 MG TABLET TL SCH (21:46)
[2023-08-18] MEDS ORDERED: QUEtiapine 25 MG TABLET PO STA ×2 (02:45→05:48)
[2023-08-18] MEDS ORDERED: HALOPERIDOL 5 MG/ML VIAL IM STA (05:38)
[2023-08-18] MEDS: LEVOTHYROXINE 25 MCG TABLET PO SCH (06:27)
[2023-08-18] MEDS: PANTOPRAZOLE 40 MG TABLET PO SCH (06:27)
[2023-08-18] MEDS: hydrALAZINE 10 MG TABLET PO SCH (10:32)
[2023-08-18] MEDS: GABAPENTIN 300 MG CAPSULE PO SCH ×2 (10:32→20:46)
[2023-08-18] MEDS: CYANOCOBALAMIN 500 MCG TABLET PO SCH (10:32)
[2023-08-18] MEDS: lisinopriL 20 MG TABLET PO SCH (10:32)
[2023-08-18] MEDS ORDERED: OLANZapine 10 MG VIAL IM STA (11:32)
[2023-08-18] MEDS ORDERED: OLANZapine 10 MG VIAL IM ONE (11:34)
[2023-08-18] MEDS: OLANZapine ODT 5 MG TABLET TL SCH (20:46)
[2023-08-18] MEDS: hydrOXYzine PAMOATE 25 MG CAPSULE PO PRN (20:46)
--- NOTE | 2023-08-18 21:51 | ED Physician Documentation ---
ED Addendum - Addendum Addendum: 08/18/23 21:51 No changes during my shift. Patient signed out to the oncoming emergency department provider.
[2023-08-19] MEDS: LEVOTHYROXINE 25 MCG TABLET PO SCH (06:17)
[2023-08-19] MEDS: hydrOXYzine PAMOATE 25 MG CAPSULE PO PRN (06:17)
[2023-08-19] MEDS: PANTOPRAZOLE 40 MG TABLET PO SCH (06:17)
[2023-08-19] MEDS: lisinopriL 20 MG TABLET PO SCH (10:12)
[2023-08-19] MEDS: hydrALAZINE 10 MG TABLET PO SCH (10:12)
[2023-08-19] MEDS: GABAPENTIN 300 MG CAPSULE PO SCH ×2 (10:12→22:22)
[2023-08-19] MEDS: CYANOCOBALAMIN 500 MCG TABLET PO SCH (10:13)
[2023-08-19] MEDS: OLANZapine ODT 5 MG TABLET TL SCH (22:22)
[2023-08-20] MEDS: PANTOPRAZOLE 40 MG TABLET PO SCH (06:39)
[2023-08-20] MEDS: LEVOTHYROXINE 25 MCG TABLET PO SCH (06:39)
[2023-08-20] MEDS: lisinopriL 20 MG TABLET PO SCH (10:57)
[2023-08-20] MEDS: hydrALAZINE 10 MG TABLET PO SCH (10:58)
[2023-08-20] MEDS: CYANOCOBALAMIN 500 MCG TABLET PO SCH (10:58)
[2023-08-20] MEDS: GABAPENTIN 300 MG CAPSULE PO SCH ×2 (10:58→21:02)
[2023-08-20] MEDS: hydrOXYzine PAMOATE 25 MG CAPSULE PO PRN (17:40)
--- NOTE | 2023-08-20 18:36 | ED Physician Documentation ---
ED Addendum - Addendum Addendum: 08/20/23 18:35The patient was to be accepted at [facility]. However the not able to take her until tomorrow. No change in status today and continue with normal intake and diet.
[2023-08-20] MEDS: OLANZapine ODT 5 MG TABLET TL SCH (21:02)
[2023-08-21] MEDS: hydrALAZINE 10 MG TABLET PO SCH (08:24)
[2023-08-21 08:25] VITALS: BP 199/89; O2SAT 97
[2023-08-21] MEDS: lisinopriL 20 MG TABLET PO SCH (08:25)
[2023-08-21] MEDS: GABAPENTIN 300 MG CAPSULE PO SCH (08:25)
[2023-08-21] MEDS: PANTOPRAZOLE 40 MG TABLET PO SCH (08:25)
[2023-08-21] MEDS: CYANOCOBALAMIN 500 MCG TABLET PO SCH (08:25)
[2023-08-21] MEDS: LEVOTHYROXINE 25 MCG TABLET PO SCH (08:26)
--- NOTE | 2023-08-21 09:34 | ED Physician Documentation ---
ED Addendum - Addendum Addendum: 08/21/23 09:32 The patient was not having any problems this morning. She is confused and forgetful consistent with dementia. No behavioral disturbance here. She seems to be doing well on her current oriented admission regimen of medications. She did have some breakfast. She is still on track for being received by [facility]. Due to her dementia and such she might need to go by BLS or if they have private vehicle. Disposition: The patient is discharged to a retirement facility in stable condition Diagnoses: Dementia behavioral disturbance, improved
== END 2023-08-21 12:23 | disposition home or self-care (01) ==
LOC: EDBD → EDUNIT# → ED 17:41
DX: F03.918 Unspecified dementia, unspecified severity, with other behavioral disturbance (principal); Z20.822 Contact with and (suspected) exposure to COVID-19; I10 Essential (primary) hypertension; E03.9 Hypothyroidism, unspecified; Z79.899 Other long term (current) drug therapy
CPT/HCPCS: 36415; 70450; 80053; 80306; 80307; 81001; 82550; 82607; 82746; 83690; 83735; 84443; 85025; 87635; 93005; 99283; 99284; A9270; G0425; G0480; Q3014; 80320; 80329; 81003; 87086

== ENCOUNTER 2023-08-21 12:10 | Outpatient (CLI) | payer MEDICARE, OTHER | END 2023-08-21 12:11 | disposition home or self-care (01) | LOC: EMS 12:10 | PROVIDERS: ATTEND Emergency Medicine | DX: R41.0 Disorientation, unspecified (principal); F03.911 Unspecified dementia, unspecified severity, with agitation; Z74.01 Bed confinement status | CPT/HCPCS: A0425; A0428 ==

== ENCOUNTER 2023-09-22 09:20 | Outpatient (CLI) | payer MEDICARE, OTHER | END 2023-09-22 23:59 | disposition E | LOC: EMS 09:20 ==